=== PATIENT | female | born 1975 | race Caucasian/White ===

== ENCOUNTER → 2019-08-17 11:56 | Outpatient (CLI) | payer BC, SELFPAY ==
--- NOTE | ~2019-08-17 | MM_ITS ---
EXAMINATION: MM screening [place] BI w [facility]ello HISTORY: Screening mammogram TECHNIQUE: Craniocaudal and mediolateral oblique 3-D tomosynthesis images were obtained and synthetic 2-D images were generated. CAD analysis was submitted and interpreted. COMPARISON: 01/25/2016 bilateral diagnostic digital mammogram and Limited bilateral breast ultrasound BREAST PARENCHYMAL COMPOSITION: There are scattered areas of fibroglandular density. FINDINGS: There is no evidence of suspicious mass, calcification, or architectural distortion to sugg est malignancy in either breast. There has been no suspicious interval change. IMPRESSION: 1. No mammographic evidence of malignancy. 2. Recommend routine screening mammography in one year. BI-RADS Category 1: Negative Reviewed, dictated and finalized at location A. BOX OPERATOR
== END ==
PROVIDERS: Visit Provider Obstetrics & Gynecology
DX: Z12.31 Encounter for screening mammogram for malignant neoplasm of breast (principal)
CPT/HCPCS: 77063; 77067

== ENCOUNTER → 2020-09-05 12:15 | Outpatient (CLI) | payer BC, SELFPAY ==
--- NOTE | ~2020-09-05 | MM_ITS ---
EXAMINATION: MM screening [place] w [place] HISTORY: Screening TECHNIQUE: Craniocaudal and mediolateral oblique 3-D tomosynthesis images were obtained and synthetic 2-D images were generated. CAD analysis was submitted and interpreted. COMPARISON: Comparison to multiple prior studies sequentially, with oldest reviewed study dated 01/24. BREAST PARENCHYMAL COMPOSITION: The breasts are heterogenously dense, which may obscure small masses. FINDINGS: There is no evidence of suspicious mass, calcification, or architectural distortion to sugg est malignancy in either breast. There has been no suspicious interval change. IMPRESSION: 1. No mammographic evidence of malignancy. 2. Recommend routine screening mammography in one year. BI-RADS Category 1: Negative Reviewed, dictated and finalized at location D. S ROOM ASSOCIATE
== END ==
PROVIDERS: Visit Provider Obstetrics & Gynecology
DX: Z12.31 Encounter for screening mammogram for malignant neoplasm of breast (principal)
CPT/HCPCS: 77063; 77067

== ENCOUNTER 2021-02-27 01:06 | Day surgery (SDC) | payer BC, SELFPAY ==
[2021-02-19 12:05] VITALS: BMI 30.7
[2021-02-27 08:35] VITALS: BP 138/98; PULSE 74; RESP 18; TEMP 36.6; O2SAT 100
[2021-02-27] MEDS: LACTATED RINGERS 1,000 ML 150 ML IV CONT (08:43)
--- NOTE | 2021-02-27 08:50 | WPDANESEPPF ---
Anes - Initial Pre Proc Eval Procedure: Operation Date: 02/27/21 09:00 Proposed Procedures p Esophagogastroduodenoscopy - Alvaro Liz MD Date/Time: 02/27/21 08:50 Surgeon: Alvaro Liz MD Pre Op Diagnosis: GERD Patient Data Age: 45 Gender: F Height: 1.68 m Weight: 86.6 kg Last Vital Signs Temp 36.6 C 02/27/21 08:35 Pulse 74 02/27/21 08:35 Resp 18 02/27/21 08:35 BP 138/98 H 02/27/21 08:35 Pulse Ox 100 02/27/21 08:35 Allergies Allergy/AdvReac Type Severity Reaction Status Date / Time No Known Allergies Allergy Verified 02/27/21 08:33 Home Medications Medication Instructions Recorded Confirmed Type cetirizine 10 mg tablet 10 mg PO DAILY 12/13/19 02/19/21 History azelastine 137 mcg (0.1 %) nasal 2 spray INTRANASAL Q12H #30 ml 12/17/20 02/19/21 Rx spray aerosol fluticasone propionate 50 1 spray INTRANASAL DAILY 12/17/20 02/19/21 History mcg/actuation nasal spray,suspension pantoprazole 40 mg tablet,delayed 40 mg PO QAM #90 tablet 02/06/21 02/19/21 Rx release ibuprofen 400 mg PO Q4-6H PRN 02/19/21 02/19/21 History Patient hx anesthesia problems: none Family hx anesthesia problems: none [facility] Past Medical History Medical History (Updated 02/27/21 @ 08:50 by Aravind Delvin MD) Anxiety Obesity Surgical History Surgical History H/O laparoscopy H/O tubal ligation Family History Family History Mother Patient's mother is in good health Father Family history of elevated blood lipids Family history of diabetes mellitus in first degree relative Hypertension Grandparent Cerebrovascular accident, Onset Age: 40 Malignant neoplasm of prostate, Onset Age: 70 Family history of malignant neoplasm of ovary Other Family history of malignant neoplasm of breast Social History Social History Smoking packs per day: 0.3 Smoking cigarettes per day: 6.0 Smoking status: Former smoker Tobacco type: cigarettes Second hand tobacco smoke exposure: No Smoking end date: 07/06/06 Alcohol intake: current Alcohol use details: 2 PER MONTH Substance use type: does not use Living arrangements: with family Spiritual care concerns: No Anes - Eval Final PreProcedure Day of Procedure 02/27/21 08:50 Patient weight: obese Heart: regular rate and rhythm Lungs: clear to auscultation Airway: Mallampati scale class II Neurological: alert and oriented Last oral intake: >/= 8 hours ASA classification: II Emergent: no Anesthetic plan: proceed Anesthesia type and monitoring: general GIVS and standard monitoring Informed Consent: The patient's anesthetic plan and its attendant risks and benefits were discussed with the patient/family/POA. Questions were solicited and answers provided to the satisfaction of the patient/family/POA.
--- NOTE | 2021-02-27 09:02 | PM.HPGS ---
History of Present Illness History of Present Illness Consent: Risks, benefits, and alternatives have been discussed and questions answered. Patient agrees to proceed with procedure. Chief complaint: GERD Narrative: Kamini Saravia is a 45 year old female with gerd most of her life, had EGD years ago, tried omeprazole in the past but did not help, started using protonix 2 weeks ago. Also sensation of clearing throat constantly. Review of Systems Constitutional: Constitutional: Denies headache(s) and Denies weakness Eyes: Eyes: Denies blurry vision ENT: Reports Normal hearing present, Denies headache(s) and Denies neck pain Cardiovascular: Cardiovascular: Denies chest pain and Denies dyspnea Respiratory: Respiratory: Denies dyspnea Gastrointestinal: Gastrointestinal: Reports no additional gastrointestinal complaints Genitourinary: Genitourinary: Denies dysuria Musculoskeletal: Musculoskeletal: Denies neck pain Integumentary/Breasts: Skin/Breast: Denies dry skin Neurologic: Reports Normal hearing present, Denies headache(s) and Denies weakness Psychiatric: Psychiatric: Denies anxiety Endocrine: Endocrine: Denies change in body appearance Hematologic/Lymphatic: Hematologic/Lymphatic: Denies easy bleeding Allergic/Immunologic: Allergic/Immunologic: Denies urticaria PMFSH Past Medical History Medical History (Updated 02/27/21 @ 08:50 by Aravind Devlin MD) Anxiety Obesity Surgical History Surgical History H/O laparoscopy H/O tubal ligation Family History Family History Mother Patient's mother is in good health Father Family history of elevated blood lipids Family history of diabetes mellitus in first degree relative Hypertension Grandparent Cerebrovascular accident, Onset Age: 40 Malignant neoplasm of prostate, Onset Age: 70 Family history of malignant neoplasm of ovary Other Family history of malignant neoplasm of breast Social History Social History Smoking packs per day: 0.3 Smoking cigarettes per day: 6.0 Smoking status: Former smoker Tobacco type: cigarettes Second hand tobacco smoke exposure: No Smoking end date: 07/06/06 Alcohol intake: current Alcohol use details: 2 PER MONTH Substance use type: does not use Living arrangements: with family Spiritual care concerns: No Meds Home Medications and Allergies Home Medications Medication Instructions Recorded Confirmed Type cetirizine 10 mg tablet 10 mg PO DAILY 12/13/19 02/19/21 History azelastine 137 mcg (0.1 %) nasal 2 spray INTRANASAL Q12H #30 ml 12/17/20 02/19/21 Rx spray aerosol fluticasone propionate 50 1 spray INTRANASAL DAILY 12/17/20 02/19/21 History mcg/actuation nasal spray,suspension pantoprazole 40 mg tablet,delayed 40 mg PO QAM #90 tablet 02/06/21 02/19/21 Rx release ibuprofen 400 mg PO Q4-6H PRN 02/19/21 02/19/21 History Allergies Allergy/AdvReac Type Severity Reaction Status Date / Time No Known Allergies Allergy Verified 02/27/21 08:33 Vital Signs Vital Signs - 24 hr 02/27/21 08:35 Temperature 97.8 F Pulse Rate 74 Respiratory Rate 18 Blood Pressure 138/98 H Pulse Oximetry 100 Exam Const: General: comfortable and no acute distress HENMT: General nose exam: Normal nares present Eyes: General: appearance normal, both eyes and all related structures Neck: Neck: no JVD Resp: Auscultation: clear to auscultation bilaterally Cardio: Rate: regular rate Rhythm: regular rhythm GI: Inspection: non-distended GI Palp: Yes Soft to palpation Skin: General skin exam: normal color Neuro: General: gait normal Speech: normal speech Extrem: General: normal to inspection Psych: Mental Status: mental status grossly normal Assessment and Plan Assessment and plan (1) Es
[2021-02-27] MEDS: BENZOCAINE (*SP) 60 ML SPRAY CAN (HURRICAINE) 1 SPRAY MUCOUS MEM (09:07)
[2021-02-27 09:18] VITALS: BP 119/92; PULSE 85; RESP 19; O2SAT 98
[2021-02-27 09:28] VITALS: BP 121/95; PULSE 75; RESP 19; O2SAT 98
[2021-02-27 09:38] VITALS: BP 125/87; PULSE 65; RESP 16; O2SAT 98
== END 2021-02-27 10:02 | disposition home or self-care (01) ==
PROVIDERS: PCP Internal Medicine; Visit Provider Internal Medicine Gastroenterology
PROC: 0DJ08ZZ Inspection of Upper Intestinal Tract, Via Natural or Artificial Opening Endoscopic (ICD-10-PCS; CPT 43235; principal; 2021-02-27 09:00)
DX: K21.9 Gastro-esophageal reflux disease without esophagitis (principal); F41.9 Anxiety disorder, unspecified; Z87.891 Personal history of nicotine dependence; E66.9 Obesity, unspecified; Z68.30 Body mass index [BMI] 30.0-30.9, adult
CPT/HCPCS: 43239; 88305; J2001; J2704; J7120

== ENCOUNTER 2021-04-18 14:27 | Outpatient (CLI) | payer BC, SELFPAY ==
--- NOTE | ~2021-04-18 | US_ITS ---
EXAMINATION: US pelvic complete w TV DATE: 04/18/2021 15:11 INDICATION: Pelvic and perineal pain. TECHNIQUE: Multiple transabdominal and transvaginal sonographic images of the pelvis were obtained. COMPARISON: Ultrasound pelvis 01/11/2013 FINDINGS: TRANSABDOMINAL ULTRASOUND: The uterus measures 9.5 x 6.6 x 5.1 cm. There is no free fluid in the pelvis. TRANSVAGINAL ULTRASOUND: The endometrial complex measures 5 mm in thickness. There are nabothian cysts in the cervix. The righ t ovary measures 3.6 x 2.3 x 2.0 cm. There is normal vascular flow in right ovary. The left ovary is not visualized. IMPRESSION: 1. Normal uterus and right ovary. Left ovary not visualized. Reviewed, dictated and finalized at location A.
== END 2021-04-18 14:28 | disposition home or self-care (01) ==
LOC: ANHIMG 14:35
PROVIDERS: PCP Internal Medicine; Visit Provider Obstetrics & Gynecology
DX: N92.0 Excessive and frequent menstruation with regular cycle (principal); R10.2 Pelvic and perineal pain
CPT/HCPCS: 76830; 76856

== ENCOUNTER 2021-06-24 13:06 | Outpatient (CLI) | payer BC, SELFPAY ==
--- NOTE | 2021-06-24 13:18 | ECG_ITS ---
Measurements Intervals [place] Rate: 81 P: 61 GA: 161 QRS: 5 QRSD: 100 T: 5 QT: 348 QTc: 406 Interpretive Statements SINUS RHYTHM POSSIBLE LEFT ATRIAL ENLARGEMENT POOR R WAVE PROGRESSION, ANTERIOR LEADS BORDERLINE ST-T WAVE ABNORMALITY- INFERIOR LEADS BORDERLINE ECG Electronically Signed On 06-24-2021 13:31:37 NATURAL FOODS CLERK by Jean Claude Mccormack D.O.
== END 2021-06-24 13:07 | disposition home or self-care (01) ==
LOC: ANHSURGERY 13:10
PROVIDERS: PCP Internal Medicine; Visit Provider Obstetrics & Gynecology
DX: Z01.818 Encounter for other preprocedural examination (principal); N92.0 Excessive and frequent menstruation with regular cycle
CPT/HCPCS: 36415; 86850; 86900; 86901; 93005

== ENCOUNTER 2021-06-26 00:14 | Day surgery (SDC) | payer BC, SELFPAY ==
[2021-06-24 10:00] VITALS: BMI 32.3
--- NOTE | 2021-06-24 10:16 | PC.NURSE ---
Report to the Outpatient Waiting Room, entrance under the green pavilion located off [facility], at time 6:00 on date 06/26/21. OR Time: 7:30. - You and your visitor will be asked a series of questions to screen for COVID 19 for your protection. - A mask is required within the hospital. - Only one visitor is allowed at this time. Patient visitors will be guided where to wait when not with patient. Preoperative COVID Testing Requirements: No COVID Test needed if: (proof is required; if not received patient will have Rapid Test prior to entry) - Patient has received COVID Vaccine at least 14 days prior to procedure date or - Patient has positive COVID test result within last 90 days of surgery date. COVID Test needed if above criteria is not met If not COVID vaccinated a COVID test must be conducted within 72 hours of surgery and patient is asked to isolate self from time of testing until procedure. You will go to the [facility] for your COVID testing. The [facility] is located at the corner of [address] [facility]. You will only be called if COVID results are positive and your surgeon may reschedule your elective surgery date. Patients may have clear liquids (water, carbonated beverages, clear teas, apple juice) until 3 hours prior to surgery with a maximum of 20 ounces. - No food from midnight until time of surgery - Infants may have breast milk until 4 hours before surgery, infant formula 6 hours prior to surgery. - Children will be allowed to drink immediately following surgery. If applicable, please bring a bottle or sippy cup to assist with drinking. Juice, water, soda, and popsicles are readily available. For infants on formula, please bring formula the day of surgery. Pacifiers are allowed. Take the following medications with a SIP of water the morning of surgery: NONE Medications to discontinue per physician: VITAMINS/SUPPLEMENTS Date to take last dose: DO NOT TAKE UNTIL AFTER SURGERY NO IBUPROFEN FOR [address] HA Please no make-up, nail peruvian, hairspray, perfume, deodorant, or body powder the day of surgery. No jewelry (including any body piercings) or valuables the day of surgery, leave them at home. Please take a shower or bath the night before, or the morning of, surgery with an antibacterial soap. Wear comfortable, loose fitting clothing. Children are encouraged to wear pajamas. - Jewelry must be removed prior to entering the operating room. Rings and piercings that are not removed may be cut off. - The hospital will not accept responsibility for valuables. - Please leave all valuables, including medications, at home the day of surgery. If you are going home after surgery, a licensed transit mixer driver must drive you home. - NO public transportation without another adult. - We recommend that an adult stay with you for 24 hours following discharge. - We also recommend that you do not drive, make important decision, drink alcoholic beverages, or take any drugs that were not prescribed by your health care provider for at least 24 hours after your discharge time. For Pediatric surgeries, we recommend two adults accompany the child home (only one inside the building at this time). Follow any additional instructions given to you from your surgeon. Telephone instructions given to IRAIDA JUAN and asked if any additional questions and then verbalized understanding. Patient advised to call surgeon office or pre surgery nurse liaison [phone] if any additional questions.
--- NOTE | 2021-06-25 15:58 | PM.IMHP ---
H&P: HPI History of Present Illness Date/Time: 06/25/21 15:58 tubal ligation for contraception. She has very heavy cycles where she has soiling. She has had a history of menorrhagia and has tried control pills in the past which does not work well for her. She has been recently diagnosed with anemia. She does get fatigued with her periods She states that she feels significant pain on her left side with her periods and when she is ovulating this happened most months. She has not noticed any change in the flow with exercise. The heaviness is affecting her quality of life. She does have a history of endometriosis. She has been informed of options of progesterone only control pill or low-dose control pill Depo-Provera Nexplanon also discussed options of progesterone only IUD and risks benefits of all of these discussed. Also discussed with her options of endometrial ablation risks benefits of this discussed. She states she is at the point where she does not want to try something and have the chance of it feeling. She desires definitive treatment. I informed her of the treatment option of a hysterectomy. I discussed with her what the hysterectomy procedure. Discussed the recovery involved with it. Discussed removing of fallopian tubes which helped to decrease risk of ovarian cancer. Discussed if her ovary should remain which I usually recommend to keep ovaries in women less than 47 unless they look abnormal. Since she is having some pain on her left side then she can consider removing that ovary. Discussed that a hysterectomy with keeping her ovaries would not stop her premenstrual symptoms or ovulation symptoms unless that ovary is removed. She does have hot flashes occasionally. Has not done well with hormone in past and does not want to do any hormonal therapy. She had recent endometrial biopsy which was normal. She desires definitive treatment for the menorrhagia and pelvic pain. She wants her ovaries removed. Discuss symptoms risk of surgical menopause to include increase risk of bone loss, discussed menopausal symptoms. Discussed specifically robotic laparoscopy and risk benefits. Discussed the risk benefits of robotic minimally invasive procedure versus traditional laparoscopic hysterectomy or vaginal hysterectomy. Discussed that there is a 5-8 % chance of needing future invasive or surgical evaluation of ovaries if they remain.Discussed the benefit of keeping her ovaries, on her bone health, cognition and discussed symptoms of surgical menopause. Chief Complaint: heavy periods, pelvic pain Review of Systems Review of Systems: All systems reviewed & are unremarkable except as noted in HPI and below Cardiovascular: Cardiovascular: Reports no additional cardiovascular complaints, Denies chest pain and Denies dyspnea Respiratory: Respiratory: Reports no additional respiratory complaints and Denies dyspnea Gastrointestinal: Gastrointestinal: Reports abdominal pain, Denies change in bowel habits, Denies diarrhea, Denies nausea and Denies vomiting Genitourinary: Genitourinary: Reports pelvic pain Musculoskeletal: Musculoskeletal: Reports back pain Integumentary/Breasts: Skin/Breast: Reports system reviewed and no additional complaints, except as docu Neurologic: Reports system reviewed and no additional complaints, except as documented [facility] Past Medical History Medical History Anxiety Obesity Surgical History Surgical History H/O laparoscopy H/O tubal ligation Family History Family History Mother Patient's mother is in good health Father Family history of elevated blood lipids Family history of diabetes mellitus in first degree relative Hypertension Grandparent Cerebrovascular accident, Onset Age: 40 Malignant neoplasm of
[2021-06-26] VITALS (16 sets, daily range): BP systolic 116–150; BP diastolic 80–92; PULSE 84–102; RESP 16–24; TEMP 36.1–36.2; O2SAT 91–100
--- NOTE | 2021-06-26 06:49 | WPDANESEPPF ---
Anes - Initial Pre Proc Eval Procedure: Operation Date: 06/26/21 07:30 Proposed Procedures p Robotic Hysterectomy with Bilateral Salpingo-Oophorectomy - Elver Jones MD Date/Time: 06/26/21 06:49 Surgeon: Elver Jones MD Pre Op Diagnosis: menorrhaghia Patient Data Age: 45 Gender: F Height: 1.68 m Weight: 90.72 kg Allergies Allergy/AdvReac Type Severity Reaction Status Date / Time No Known Allergies Allergy Verified 06/24/21 09:57 Home Medications Medication Instructions Recorded Confirmed Type cetirizine 10 mg tablet 10 mg PO DAILY 12/13/19 06/24/21 History pantoprazole 40 mg tablet,delayed 40 mg PO QAM #90 tablet 02/06/21 06/24/21 Rx release ibuprofen 400 mg PO Q4-6H PRN 02/19/21 06/24/21 History multivitamin 1 tablet PO DAILY 03/20/21 06/24/21 History ferrous sulfate 325 mg (65 mg 325 mg PO DAILY 06/21/21 06/24/21 History iron) tablet norethindrone 1 mg-ethinyl 1 tablet PO HS 06/21/21 06/24/21 History estradiol 20 mcg (21)-iron 75 mg (7) tablet Patient hx anesthesia problems: none Family hx anesthesia problems: none Results Review: All pre-operative results and documents have been reviewed as part of the pre-operative evaluation. [facility] Past Medical History Medical History Anxiety Obesity Surgical History Surgical History (Updated 06/26/21 @ 06:50 by Aravind Devlin MD) H/O laparoscopy H/O tubal ligation Hx of tonsillectomy Family History Family History Mother Patient's mother is in good health Father Family history of elevated blood lipids Family history of diabetes mellitus in first degree relative Hypertension Grandparent Cerebrovascular accident, Onset Age: 40 Malignant neoplasm of prostate, Onset Age: 70 Family history of malignant neoplasm of ovary Other Family history of malignant neoplasm of breast Social History Social History (Updated 06/26/21 @ 06:50 by Aravind Devlin MD) Smoking packs per day: 0.3 Smoking cigarettes per day: 6.0 Years smoked: 9 Smoking pack-years: 2.70 Smoking status: Former smoker Tobacco type: cigarettes Second hand tobacco smoke exposure: No Smoking end date: 07/06/04 Alcohol intake: current Alcohol use details: 1/MONTH Substance use: current Substance use type: marijuana Other substance usage details: EDIBLES - EVERY FEW MONTHS Living arrangements: with family Spiritual care concerns: No Anes - Eval Final PreProcedure Day of Procedure 06/26/21 06:49 Patient weight: obese Heart: regular rate and rhythm Lungs: clear to auscultation Airway: Mallampati scale class II Neurological: alert and oriented Last oral intake: >/= 8 hours ASA classification: II Emergent: no Anesthetic plan: proceed Anesthesia type and monitoring: general ETT and standard monitoring Results Review: All pre-operative results and documents have been reviewed as part of the pre-operative evaluation. Informed Consent: The patient's anesthetic plan and its attendant risks and benefits were discussed with the patient/family/POA. Questions were solicited and answers provided to the satisfaction of the patient/family/POA.
[2021-06-26] MEDS: ACETAMINOPHEN 500 MG TABLET 1000 MG PO ×2 (06:50→07:00)
[2021-06-26] MEDS: KETOROLAC 15 MG/ML VIAL (*BKC) IV PUSH ×3 (06:54→13:27)
[2021-06-26] MEDS: LACTATED RINGERS 1,000 ML 30 ML IV CONT ×3 (07:00→11:32)
--- NOTE | 2021-06-26 07:18 | WPDHPUPDATE1 ---
History and Physical Update Update Date/Time: 06/26/21 07:18 History and Physical has been reviewed, including an updated exam of the patient. There are NO changes in the patient's condition. Risks, benefits, and alternatives have been discussed and questions answered. Patient agrees to proceed with procedure.
[2021-06-26] MEDS: ceFAZolin 2 GM/D5W 50 ML 2 GM/50 ML BAG IVPB (07:26)
[2021-06-26] MEDS: BUPIVACAINE HCL 0.5% PF 30 ML VIAL INFILTRATE (07:56)
--- NOTE | 2021-06-26 08:38 | SUR.OPER ---
patients positioning maintained and unchanged.
--- NOTE | 2021-06-26 10:03 | W.PM.PROC2 ---
Procedure Note - Detailed Date of Procedure 06/26/21 Pre-op Diagnosis menorrhaghia pelvic pain endometriosis Post-op Diagnosis same Procedure Performed Robotic assisted laparoscopic hysterectomy with bilateral salpingo-oophorectomy Surgeon Elver Jones MD Anesthesia general Indications Menorrhagia with anemia, not responding to medication and pelvic pain and dysmenorrhea. She desires definitive treatment. Findings Uterus mildly enlarged, left ovary with simple cyst, fallopian tubes dilated bilaterally, right ovary with adhesions to right pelvic wall, endometriosis seen on sigmoid colon Description of Procedure After informed consent was obtained she was taken to the operating room and general endotracheal anesthesia was administered. She was placed in low lithotomy position and prepped and draped in sterile fashion. Fleming catheter placed in bladder. Attention was turned to the vagina speculum was inserted. Single-tooth tenaculum placed on anterior lip of the cervix the uterus sounded to 8 cm. The cervix was dilated to a 7 Cavazos dilator. The size 8 uterine manipulator was inserted and secured. A size 3.5 colp cup was secured in the vagina. Attention was turned to the abdomen with new sterile gloves a horizontal incision was made 2 cm above the umbilicus. A Veress needle was inserted into abdomein, confirmation into the abdomen was obtained with free flow of fluid and normal peritoneal pressures. Pneumoperitoneum of 15 mm per mercury was obtained. A size 8mm port was inserted under laparoscopic visualization into the abdomen. Attention was turned to the left side of the abdomen 8 cm below and lateral to the initial incision and incision was made and a size 8 robotic port was inserted under laparoscopic visualization. Attention was turned to the right side of the abdomen and parallel to this and incision was made. An 8 mm robotic port was inserted under laparoscopic visualization. Superior and 5 mm medial to this a 10mm inventory assistant port was inserted under laparoscopic visualization. Patient was placed in Trendelenburg position to the point to allow the bowel to retract out of the pelvis. The initial 8mm supraumbilical port was enough space to allow it to be secured to robotic arm therefore it was removed and a size 12 which was longer was inserted under laparoscopic visualization. The robotic arms were then secured to the ports. Attention was turned to the surgical console. Attention was turned to the right round ligament which was cauterized and incised the anterior leaf of the broad ligament was further dissected to the level of the vesicouterine peritoneum. The right side of the bladder was dissected from the lower uterine segment and upper cervix. The right infundibulopelvic ligament was cauterized. The ovary was adhesed to the right pelvic wall. The adhesions were lysed. The ovary was released. The posterior leaf of broad ligament was further dissected. The uterine vessels on the right were skeletonized. The ascending uterine vessels on the right were cauterized. The uterine vessels were cauterized. Attention was turned to the left round ligament which was cauterized. The left anterior leaf of the broad ligament was further dissected to the vesicouterine peritoneum. The rest of the bladder was dissected from the lower uterine segment to below the level of the palpable colpotomy cup. The left infundibulopelvic ligament was cauterized. The posterior leaf of the broad ligament was further dissected. The ascending uterine vessels were cauterized the uterine arteries were further skeletonized. The uterine arteries were cauterized. An incision was made anterior colpotomy incision was made and this was carried around until the cervix was removed from the vagina. The uterus cervix and fallopian tubes and ovaries were removed through the vagina. The vaginal cuff was closed in a running fashion with 0 V lock suture. Hemostasis was noted.
[2021-06-26] MEDS: fentaNYL CITRATE INJ (*CRX) 100 MCG/2 ML VIAL 25 MCG IV PUSH ×4 (10:41→11:44)
[2021-06-26] MEDS: ONDANSETRON INJ 4 MG/2 ML VIAL IV PUSH (12:14)
[2021-06-26] MEDS: oxyCODONE HCL (*CRX) 5 MG TAB IR PO (14:04)
--- NOTE | 2021-06-26 16:02 | SUR.PHASEII ---
1450 - dr. umana called with update. order received for discharge
== END 2021-06-26 15:25 | disposition home or self-care (01) ==
PROVIDERS: PCP Internal Medicine; Visit Provider Obstetrics & Gynecology
PROC: (CPT 58571; principal; 2021-06-26 07:30)
DX: N92.0 Excessive and frequent menstruation with regular cycle (principal); R10.2 Pelvic and perineal pain; N73.6 Female pelvic peritoneal adhesions (postinfective); N80.8 Other endometriosis; N80.0 Endometriosis of uterus; D25.1 Intramural leiomyoma of uterus; N70.11 Chronic salpingitis; N83.02 Follicular cyst of left ovary; E66.9 Obesity, unspecified; Z68.32 Body mass index [BMI] 32.0-32.9, adult; Z87.891 Personal history of nicotine dependence; F12.90 Cannabis use, unspecified, uncomplicated
CPT/HCPCS: 58571; S2900; 36415; 86850; 86900; 86901; 88307; 93005; A9270; J0131; J0690; J1100; J1885; J2250; J2405; J2704; J2710; J3010; J7030; J7120

== ENCOUNTER → 2022-01-20 10:15 | Outpatient (CLI) | payer BC, SELFPAY ==
--- NOTE | ~2022-01-20 | MM_ITS ---
EXAMINATION: MM screening [place] BI w bello HISTORY: Screening TECHNIQUE: Craniocaudal and mediolateral oblique 3-D tomosynthesis images were obtained and synthetic 2-D images were generated. CAD analysis was submitted and interpreted. COMPARISON: Comparison to multiple prior studies sequentially, with oldest reviewed study dated 01/24. BREAST PARENCHYMAL COMPOSITION: There are scattered areas of fibroglandular density. FINDINGS: There is no evidence of suspicious mass, calcification, or architectural distortion to sugg est malignancy in either breast. There has been no suspicious interval change. IMPRESSION: 1. No mammographic evidence of malignancy. 2. Recommend routine screening mammography in one year. BI-RADS Category 1: Negative Reviewed, dictated and finalized at location A.
== END ==
PROVIDERS: PCP Internal Medicine; Visit Provider Obstetrics & Gynecology
DX: Z12.31 Encounter for screening mammogram for malignant neoplasm of breast (principal)
CPT/HCPCS: 77063; 77067

== ENCOUNTER → 2022-04-07 08:12 | Outpatient (CLI) | payer BC, SELFPAY ==
--- NOTE | ~2022-04-07 | US_ITS ---
US abdomen complete EXAMINATION: US Abdomen Complete INDICATION: Elevated liver enzymes PROCEDURE: Realtime High Resolution abdomen ultrasound. COMPARISON: No prior studies for comparison FINDINGS: Gallbladder within normal limits. No gallstones, pericholecystic fluid, gallbladder wall t hickening or biliary dilatation. Common bile duct measures 3 mm. Liver echotexture is increased, consistent with fatty infiltration. Pancreas within normal limits. Pancreatic tail is obscured by bowel gas. Spleen is unremarkeable. Renal echotexture is within jeff l limits bilaterally without hydronephrosis, contour deforming mass or renal stone. Right kidney nery ures 12.7 cm. Left kidney measures 12.6 cm. Visualized aspects of the aorta and IVC are within normal limits. Portal vein is patent. No sonograph ic Johnson's sign indicated by the technologist. IMPRESSION: 1: Hepatic steatosis. Reviewed, dictated and finalized at location A. IMPRESSION: 1: Hepatic steatosis.
== END ==
PROVIDERS: PCP Internal Medicine; Visit Provider Internal Medicine
DX: R79.89 Other specified abnormal findings of blood chemistry (principal); K76.0 Fatty (change of) liver, not elsewhere classified
CPT/HCPCS: 76700

== ENCOUNTER 2022-04-10 08:07 | Outpatient (RCR) | payer BC, SELFPAY ==
[2022-04-10 08:26] VITALS: BMI 33.1
[2022-04-10 12:54] VITALS: BMI 33.1
== END 2022-07-01 08:24 | disposition home or self-care (01) ==
LOC: ANHDMC 08:07
PROVIDERS: PCP Internal Medicine; Visit Provider Internal Medicine
DX: E66.9 Obesity, unspecified (principal); Z71.3 Dietary counseling and surveillance
CPT/HCPCS: 97802

== ENCOUNTER 2022-06-11 00:16 | Day surgery (SDC) | payer BC, SELFPAY ==
[2022-06-02 14:15] VITALS: BMI 31.4
[2022-06-11 09:03] VITALS: BP 144/82; PULSE 97; RESP 20; TEMP 36.1; O2SAT 99; BMI 31.7
[2022-06-11] MEDS: LACTATED RINGERS 1,000 ML 150 ML IV CONT (09:17)
--- NOTE | 2022-06-11 09:36 | WPDANESEPPF ---
Anes - Initial Pre Proc Eval Procedure: Operation Date: 06/11/22 10:15 Proposed Procedures p Colonoscopy - Alvaro Liz MD Date/Time: 06/11/22 09:36 Surgeon: Alvaro Liz MD Pre Op Diagnosis: LLQ abdominal pain Patient Data Age: 46 Gender: F Height: 1.68 m Weight: 89.2 kg Last Vital Signs Temp 97 F L 06/11/22 09:03 Pulse 97 06/11/22 09:03 Resp 20 06/11/22 09:03 BP 144/82 H 06/11/22 09:03 Pulse Ox 99 06/11/22 09:03 O2 Del Method Room Air 06/11/22 09:03 Allergies Allergy/AdvReac Type Severity Reaction Status Date / Time No Known Allergies Allergy Verified 06/11/22 09:02 Home Medications Medication Instructions Recorded Confirmed Type cetirizine 10 mg tablet (Zyrtec) 10 mg PO DAILY 12/13/19 06/11/22 History multivitamin (Daily Multi-Vitamin 1 tablet PO DAILY 03/20/21 06/11/22 History tablet) fluticasone propionate 50 1 spray intranasal DAILY 12/25/21 06/11/22 History mcg/actuation nasal spray,suspension (Flonase Allergy Relief) colchicine 0.6 mg tablet 0.6 mg PO DAILY #30 tabs 04/16/22 06/11/22 Rx pantoprazole 40 mg tablet,delayed 40 mg PO BID 06/02/22 06/11/22 History release (Protonix) dicyclomine 20 mg tablet 20 mg PO TID PRN abdominal 06/05/22 06/11/22 Rx discomfort #90 tabs hydroxychloroquine 200 mg tablet 400 mg PO DAILY #180 tabs 06/10/22 06/11/22 Rx (Plaquenil) Patient hx anesthesia problems: none Family hx anesthesia problems: none Results Review: All pre-operative results and documents have been reviewed as part of the pre-operative evaluation. [facility] Past Medical History Medical History (Updated 06/09/22 @ 09:49 by Matthew Conrad MD) Allergic rhinitis Allergic rhinitis JITENDRA positive Anemia Anxiety Arthritis Breast pain Cervical radiculopathy Chronic sinusitis, unspecified Diarrhea in adult patient Dietary counseling and surveillance (05/21/15) Dysmenorrhea Ear pain Elevated antinuclear antibody (JITENDRA) level Elevated LFTs Epigastric pain Esophageal reflux disease Fatigue Fatty liver Gastro-esophageal reflux disease without esophagitis History of endometriosis Hyperglycemia Injury of calf Iron deficiency anemia secondary to blood loss (chronic) Kidney stones Left foot pain Left shoulder pain Left upper quadrant pain Low grade squamous intraepithelial lesion (LGSIL) on Papanicolaou smear of cervix Menopausal symptom Menorrhagia Nasal congestion Obesity Obesity, Class I, BMI 30-34.9 Otalgia of both ears Pain of right foot Pelvic pain Plantar fasciitis, bilateral PMDD (premenstrual dysphoric disorder) Positive JITENDRA (antinuclear antibody) Post-op pain Preop examination Pseudogout of ankle Pure hypercholesterolemia Spondylarthrosis TMJ (temporomandibular joint disorder) Transient cerebral ischemia Unspecified abnormal cytological findings in specimens from cervix uteri UTI (urinary tract infection) Weight gain finding Surgical History Surgical History H/O bilateral salpingo-oophorectomy H/O laparoscopy endometriosis Dr. Jones H/O tubal ligation Hx of tonsillectomy S/P laparoscopic hysterectomy Family History Family History Mother Patient's mother is in good health Father Family history of elevated blood lipids Family history of diabetes mellitus in first degree relative Hypertension Grandparent Cerebrovascular accident, Onset Age: 40 Malignant neoplasm of prostate, Onset Age: 70 Family history of malignant neoplasm of ovary Other Family history of malignant neoplasm of breast Osteoarthritis Social History Social History Smoking packs per day: 0.3 Smoking cigarettes per day: 6.0 Years smoked: 9 Smoking pack-years: 2.70 Smoking status: Former smoker Tobacco type: cigarettes
--- NOTE | 2022-06-11 09:43 | WPDHPUPDATE1 ---
History and Physical Update Update Date/Time: 06/11/22 09:43 History and Physical has been reviewed, including an updated exam of the patient. There are NO changes in the patient's condition. Risks, benefits, and alternatives have been discussed and questions answered. Patient agrees to proceed with procedure.
[2022-06-11 10:04] VITALS: BP 121/85; PULSE 74; RESP 35; O2SAT 99
[2022-06-11 10:14] VITALS: BP 133/92; PULSE 71; RESP 19; O2SAT 99
[2022-06-11 10:24] VITALS: BP 119/85; PULSE 80; RESP 18; O2SAT 100
== END 2022-06-11 10:32 | disposition home or self-care (01) ==
PROVIDERS: PCP Internal Medicine; Visit Provider Internal Medicine Gastroenterology
PROC: 0DJD8ZZ Inspection of Lower Intestinal Tract, Via Natural or Artificial Opening Endoscopic (ICD-10-PCS; CPT 45378; principal; 2022-06-11 10:15)
DX: R10.32 Left lower quadrant pain (principal); K64.8 Other hemorrhoids; K21.9 Gastro-esophageal reflux disease without esophagitis; K76.0 Fatty (change of) liver, not elsewhere classified; R76.0 Raised antibody titer; Z87.891 Personal history of nicotine dependence; E66.9 Obesity, unspecified; Z68.31 Body mass index [BMI] 31.0-31.9, adult
CPT/HCPCS: 45378; J2704; J7120

== ENCOUNTER → 2022-06-18 07:38 | Outpatient (CLI) | payer BC, SELFPAY ==
--- NOTE | ~2022-06-18 | XR_ITS ---
AP and oblique views of the SI joints Clinical history: Joint pain FINDINGS: No fracture identified. SI joints are unremarkable. No sclerosis, erosive change, or ankylo sis. Soft tissues are unremarkable. IMPRESSION: Unremarkable exam. 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
--- NOTE | ~2022-06-18 | XR_ITS ---
Bilateral Hands Technique: PA, oblique, and lateral views, and ball-catcher's view were obtained. Clinical History: Arthritis, joint pain Findings: No acute fracture or dislocation is seen. Osseous alignment is anatomic. Joint spaces are p reserved. Soft tissues are unremarkable. Impression: Unremarkable bilateral hands. Reviewed, dictated and finalized at location [] [employer] Impression: Unremarkable bilateral hands.
== END ==
PROVIDERS: PCP Internal Medicine; Visit Provider Internal Medicine
DX: M25.50 Pain in unspecified joint (principal)
CPT/HCPCS: 72202; 73130

== ENCOUNTER → 2022-09-10 08:49 | Outpatient (CLI) | payer BC, SELFPAY ==
--- NOTE | ~2022-09-10 | MR_ITS ---
EXAMINATION: MR sacroiliac jts wo/w con DATE: 09/10/2022 09:41 INDICATION: Worsening chronic bilateral hip pain TECHNIQUE: Magnetic resonance imaging (MRI) of the sacroiliac joints was performed without and with 1 8 mL Multihance intravenous contrast. Sequences included sagittal PD-weighted FS FSE, coronal obliqu e T2-weighted FS FSE, coronal oblique T1-weighted FSE, coronal oblique T2-weighted FSE, oblique axial T2-weighted FS FSE , oblique axial T1-weighted FSE and postcontrast oblique axial and oblique catalan l T2-weighted FS FSE. COMPARISON: None FINDINGS: Bone alignment is normal. Normal bone marrow signal throughout with no reactive edema, fracture or pa thologic marrow replacing process. Minimal osteoarthritis at the bilateral sacroiliac joints. No eros ions or enhancing synovitis to suggest an inflammatory sacroiliitis. Mild facet osteoarthritis bilate rally in the lower lumbar spine. Mild osteoarthritis at the bilateral hips with mild posterior predom inant nonuniform joint space narrowing. No hip joint effusions. Postoperative change of prior hystere ctomy. Bladder and visualized portion of the bowels are unremarkable. No pathologically enlarged lymp hadenopathy in the visualized pelvis. IMPRESSION: 1. Minimal bilateral sacroiliac osteoarthritis. No erosions or enhancing synovitis to suggest an infl ammatory sacroiliitis. Reviewed, dictated and finalized at location A. ND OPERATOR IMPRESSION: 1. Minimal bilateral sacroiliac osteoarthritis. No erosions or enhancing synovi tis to suggest an inflammatory sacroiliitis.
== END ==
PROVIDERS: PCP Internal Medicine; Visit Provider Internal Medicine
DX: R10.9 Unspecified abdominal pain (principal); M53.3 Sacrococcygeal disorders, not elsewhere classified
CPT/HCPCS: 72197; A9577

== ENCOUNTER → 2022-09-12 15:04 | Outpatient (CLI) | payer BC, SELFPAY ==
--- NOTE | ~2022-09-12 | CT_ITS ---
EXAMINATION: CT abdomen pelvis w con DATE: 09/12/2022 15:31 INDICATION: Left-sided abdominal pain TECHNIQUE: Computed tomography (CT) of the abdomen and pelvis was performed with 100 mL Omnipaque-350 intravenous contrast. Automated exposure control and iterative reconstruction technique were employe d. The dose-length product was 1013.18 mGy-cm. COMPARISON: None FINDINGS: Bilateral lower lungs are clear. Heart size is normal. No pericardial or pleural effusion. Diffuse he patic steatosis with focal sparing along the gallbladder fossa. Gallbladder, spleen, pancreas, bilate ral adrenal glands and right kidney are normal. 11 mm nonobstructing stone in a middle calyx of the l eft kidney. Bladder is normal. The uterus is not identified and has likely been surgically resected. Bowels including the appendix are normal. No free intraperitoneal gas or fluid. No pathologically enl arged abdominal or pelvic lymphadenopathy. Mild lumbar spondylosis. IMPRESSION: 1. No acute intra-abdominal/pelvic process. 2. 11 mm nonobstructing left renal stone. Reviewed, dictated and finalized at location A. NESS ARCHITECT
== END ==
PROVIDERS: PCP Internal Medicine; Visit Provider Nurse Practitioner
DX: R10.9 Unspecified abdominal pain (principal); N20.0 Calculus of kidney
CPT/HCPCS: 74177; Q9967

== ENCOUNTER 2022-09-29 08:23 | Outpatient (CLI) | payer BC, SELFPAY ==
--- NOTE | 2022-10-12 13:31 | WPDHOMESLEEP ---
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 Her tells her that she snores. There is a family history of sleep issues, her father has sleep apnea. Her mother is a light sleeper. She does not awaken from sleep feeling short of breath. She occasionally awakens at night with heartburn, belching or coughing. She constantly snores loudly enough that others complain about it. She always has difficulty sleeping with a cold. She occasionally wakes up gasping for breath at night. She rarely has breathing problems at night observed by others. She occasionally sweats excessively at night. She does not notice her heart pounding or beating irregularly at night. She frequently falls asleep during the day but never involuntarily. She occasionally falls asleep while driving. She does not have loss of muscle tone with strong emotion. She occasionally has daytime difficulties due to excessive sleepiness. She occasionally feels paralyzed on waking or falling asleep. She does not have vivid dreamlike scenes on waking or falling asleep. She does not feel afraid to go to sleep. She occasionally has nightmares. She occasionally remembers her dreams. She occasionally has racing thoughts. She rarely feels sad or depressed. She occasionally has anxiety, muscular tension, kicking at night and occasionally notices parts of her body jerking. She frequently has crawling and aching feelings in her legs and leg pain at night. She rarely has morning jaw pain. She rarely grinds her teeth during sleep. She frequently is bothered by pain during the day. She frequently is awakened by pain at night. She frequently wakes up feeling stiff in the morning. She occasionally wakes up with sore achy muscles. She frequently wakes up with pain in the neck and spine. She has fatigue, memory problems concentration difficulties. She takes pantoprazole regularly. Her fatigue affects her libido. Normal bedtime is 10:00 p.m., often taking 1-3 hours to fall asleep. She may wake as often as 5 times during the night for unclear reasons. These awakenings may last between 10 minutes or up to 2 hours. She wakes the morning at 6:30 a.m.. Weekend schedule is similar, bedtime is between 10:00 p.m. and 11:00 p.m., wake is 7:00 a.m.. She estimates getting between 7 and 8 hours of sleep at night. She sometimes takes naps in the afternoon or evening. Sometimes a 10 or 15 minute nap may be refreshing. She is usually drowsy for an hour after waking feet. She feels better in the morning compared to other times of day. Habits: Quit tobacco 16 years ago. Caffeine 1 serving a day. Alcohol once a week. No recreational substances. [facility] Past Medical History Medical History Abdominal pain Allergic rhinitis Allergic rhinitis JITENDRA positive Anemia Anxiety Arthritis Breast pain Cervical radiculopathy Chronic sinusitis, unspecified Diarrhea in adult patient Dietary counseling and surveillance (05/21/15) Dysmenorrhea Ear pain Elevated antinuclear antibody (JITENDRA) level Elevated LFTs Epigastric pain Esophageal reflux disease Fatigue Fatty liver Gastro-esophageal reflux disease without esophagitis History of endometriosis Hyperglycemia Injury of calf Iron deficiency anemia secondary to blood loss (chronic) Kidney stones Left foot pain Left shoulder pain Left upper quadrant pain Low grade squamous intraepithelial lesion (LGSIL) on Papanicolaou smear of cervix Menopausal symptom Men
[2022-10-12 16:42] VITALS: BMI 33.2
== END 2022-10-01 09:48 | disposition home or self-care (01) ==
LOC: ANHCSM 08:24
PROVIDERS: PCP Internal Medicine; Visit Provider Internal Medicine
DX: G47.10 Hypersomnia, unspecified (principal); G25.81 Restless legs syndrome; K21.9 Gastro-esophageal reflux disease without esophagitis; E78.00 Pure hypercholesterolemia, unspecified; Z87.891 Personal history of nicotine dependence
CPT/HCPCS: 95806

== ENCOUNTER 2023-10-15 21:52 | Emergency (ER) | payer BC, SELFPAY ==
--- NOTE | ~2023-10-15 | XR_ITS ---
EXAMINATION: XR chest 2V 10/15/2023 22:22 INDICATION: Left-sided chest pain PROCEDURE: 2 view chest COMPARISON: No prior studies for comparison. FINDINGS: The lungs are clear. The cardiomediastinal silhouette is within normal limits. There are no pleural effusions. There is no pneumothorax suspected. IMPRESSION: 1: NO ACUTE CARDIOPULMONARY DISEASE. Reviewed, dictated and finalized at location A.
[2023-10-15 21:53] VITALS: BP 181/110; PULSE 84; RESP 17; TEMP 36.2; O2SAT 100
--- NOTE | 2023-10-15 22:01 | ECG_ITS ---
SEE SCANNED COPY FOR CONFIRMED REPORT MTDD
[2023-10-15 22:22] LABS: Basophils Absolute Auto 0.1 K/mm3 (0.0-0.1); Eosinophils Absolute Auto 0.6 K/mm3 (0-0.3); Eosinophils Percent Auto 8.4 % (0-4.4); Hematocrit 43.3 % (37.0-47.0); Immature Granulocyte Absolute 0.02 K/mm3 (0.00-0.031); Immature Granulocyte Percent A 0.3 % (0-0.5); Lymphocytes Absolute Auto 2.53 K/mm3 (0.9-3.2); Lymphocytes Percent Auto 36.1 % (18.3-44.2); Mean Corpuscular HGB Conc 32.3 g/dl (32-36); Mean Corpuscular Hemoglobin 26.9 pg (26-34); Mean Corpuscular Volume 83.3 fl (80-100); Mean Platelet Volume 9.4 fl (7.4-10.4); Monocytes Absolute Auto 0.6 K/mm3 (0.1-0.6); Monocytes Percent Auto 8.1 % (2.6-8.5); Neutrophils Absolute Auto 3.2 K/mm3 (1.3-6.7); Neutrophils Percent Auto 46.1 % (45.5-73.1); Platelet Count Result 267 k/mm3 (150-375); Red Cell Distribution Width 15.7 % (11.5-14.5)
[2023-10-15 22:33] LABS: Alanine Aminotransferase 79 U/L (6-35); Alkaline Phosphatase 108 U/L (38-126); Anion Gap 8 mmol/L (4-12); Aspartate Amino Transferase 46 U/L (14-36); Bilirubin,Total 0.5 mg/dL (0.2-1.3); Blood Urea Nitrogen 15 mg/dL (7-17); Calcium 10.4 mg/dL (8.4-10.2); Carbon Dioxide 28 mmol/L (22-30); Chloride 104 mmol/L (98-107); Estimated CRCL calculation 91 ml/min; Estimated Glomerular Filt Rate > 60; Glucose 109 mg/dL (65-110); Lipase 164 U/L (23-300); Sodium 140 mmol/L (137-145)
[2023-10-15 22:35] LABS: INR 0.9; Prothrombin Time 12.8 Seconds (11.1-14.7)
[2023-10-15 22:43] LABS: Troponin I < 0.012 ng/mL (0.000-0.034)
[2023-10-15 23:03] VITALS: BP 136/90; PULSE 70; PULSE 75; RESP 17; O2SAT 99
[2023-10-15 23:06] VITALS: O2SAT 99
[2023-10-15] MEDS: ASPIRIN 81 MG CHEWABLE TABLET 324 MG PO (23:08)
--- NOTE | 2023-10-16 00:18 | ED.CHESTPAIN ---
HPI - Chest Pain General Chief Complaint: Chest Pain Stated Complaint: chest pain Time Seen by Provider: 10/15/23 23:28 Source: patient Mode of arrival: ambulatory Limitations: no limitations History of Present Illness HPI narrative: This is a 47-year-old female who presents to the ED with chief complaint of left-sided chest pain beginning around 17 30 this evening. Patient reports the pain radiates to the neck and left arm and is intermittent in nature. Patient states that at the time of this interview she is actually pain-free. She reports that has resolved without intervention here. She is feeling much better overall. She states that when the pain comes on it is often associated with bilateral neck tightness. She also reports that she will sometimes feel that it is hard to take a deep breath. She has been undergoing workup and treatment for anxiety as well as rheumatological workup for lupus. Denies fevers, chills, shortness of breath, abdominal pain, nausea, vomiting, syncope. Denies recent immobilization, hospitalization, history of blood clot. Denies any estrogen use. Related Data Home Medications Medication Instructions Recorded Confirmed fluticasone propionate 50 1 spray intranasal DAILY 12/25/21 08/07/23 mcg/actuation nasal spray,suspension (Flonase Allergy Relief) Saccharomyces boulardii 250 mg 5,000 mmu cells PO DAILY 08/26/22 08/07/23 capsule (Daily Probiotic (S. boulardii)) cetirizine 10 mg capsule (Zyrtec) 10 mg PO DAILY PRN 08/26/22 08/07/23 Allergies Allergy/AdvReac Type Severity Reaction Status Date / Time No Known Allergies Allergy Verified 10/15/23 23:07 Review of Systems Review of Systems: All systems as dictated in [facility] Past Medical History Medical History (Updated 10/16/23 @ 00:36 by Vipul Harper PA-C) Abdominal pain Allergic rhinitis Allergic rhinitis JITENDRA positive Anemia Anxiety Arthritis Breast pain Cervical radiculopathy Chronic sinusitis, unspecified Diarrhea in adult patient Dietary counseling and surveillance (05/21/15) Dysmenorrhea Ear pain Elevated antinuclear antibody (JITENDRA) level Elevated LFTs Encounter for medication management Epigastric pain Esophageal reflux disease Fatigue Fatty liver Gastro-esophageal reflux disease without esophagitis History of endometriosis Hyperglycemia Injury of calf Iron deficiency anemia secondary to blood loss (chronic) Kidney stones Left foot pain Left shoulder pain Left upper quadrant pain Low grade squamous intraepithelial lesion (LGSIL) on Papanicolaou smear of cervix Menopausal symptom Menorrhagia Nasal congestion Obesity Obesity, Class I, BMI 30-34.9 Otalgia of both ears Pain of right foot Pelvic pain Plantar fasciitis, bilateral PMDD (premenstrual dysphoric disorder) Positive JITENDRA (antinuclear antibody) Post-op pain Preop examination Pseudogout of ankle Pure hypercholesterolemia Spondylarthrosis TMJ (temporomandibular joint disorder) Transient cerebral ischemia Unspecified abnormal cytological findings in specimens from cervix uteri UTI (urinary tract infection) Weight gain finding Surgical History Surgical History H/O bilateral salpingo-oophorectomy H/O laparoscopy endometriosis Dr. Jones H/O tubal ligation Hx of tonsillectomy S/P laparoscopic hysterectomy Family History Family History Mother Patient's mother is in good health Father Family history of elevated blood lipids Family history of diabetes mellitus in first degree relative Hypertension Grandparent Cerebrovascular accident, Onset Age: 40 Malignant neoplasm of prostate, Onset Age: 70 Family history of malignant neoplasm of ovary Other Family history of malignant neoplasm of breast Osteoarthritis Social History Social History Smoking pa
[2023-10-16 00:35] VITALS: BP 134/95; PULSE 67; RESP 18; O2SAT 98
--- NOTE | 2023-10-16 01:29 | ECG_ITS ---
SEE SCANNED COPY FOR CONFIRMED REPORT MTDD
[2023-10-16 01:34] VITALS: BP 133/79; PULSE 72; RESP 20; O2SAT 97
[2023-10-16 02:06] LABS: Troponin I < 0.012 ng/mL (0.000-0.034)
[2023-10-16 02:22] VITALS: BP 109/70; PULSE 69; RESP 14; O2SAT 98
== END 2023-10-16 02:24 | disposition home or self-care (01) ==
PROVIDERS: Emergency Medicine; Emergency Provider Physician Assistant; PCP Internal Medicine
DX: R07.9 Chest pain, unspecified (principal); J32.9 Chronic sinusitis, unspecified; E66.01 Morbid (severe) obesity due to excess calories; Z68.34 Body mass index [BMI] 34.0-34.9, adult; E78.00 Pure hypercholesterolemia, unspecified; M19.90 Unspecified osteoarthritis, unspecified site; K21.9 Gastro-esophageal reflux disease without esophagitis; Z87.440 Personal history of urinary (tract) infections; Z86.2 Personal history of diseases of the blood and blood-forming organs and certain disorders involving the immune mechanism; Z87.442 Personal history of urinary calculi; Z87.891 Personal history of nicotine dependence; Z90.721 Acquired absence of ovaries, unilateral; Z90.79 Acquired absence of other genital organ(s); Z90.710 Acquired absence of both cervix and uterus; R94.31 Abnormal electrocardiogram [ECG] [EKG]
CPT/HCPCS: 36415; 71046; 80053; 83690; 84484; 85025; 85610; 85730; 93005; 99284; A9270

== ENCOUNTER 2024-02-25 14:05 | Outpatient (CLI) | payer BC, SELFPAY ==
--- NOTE | ~2024-02-25 | CT_ITS ---
EXAMINATION: CT abdomen pelvis wo con DATE: 02/25/2024 14:21 INDICATION: Unspecified abdominal pain. TECHNIQUE: Computed tomography (CT) of the abdomen and pelvis was performed without intravenous contr ast. Automated exposure control and iterative reconstruction technique were employed. The dose-length product was 987.42 mGy-cm. COMPARISON: CT abdomen pelvis 09/12/2022 FINDINGS: The visualized portions of the lung bases are clear without pneumonia or pleural effusion. The heart is normal. No pericardial effusion. There is diffuse hepatic steatosis. The gallbladder, sp amparo, pancreas, adrenal glands and right kidney are normal. There are 12 mm and 2 mm stones in left k idney. There are no dilated loops of bowel. The appendix is normal. There are no pathologically enlar ged lymph nodes. There is no free intraperitoneal fluid. There is mild lumbar spondylosis. IMPRESSION: 1. Nonobstructive left kidney stones. 2. Diffuse hepatic steatosis. Reviewed, dictated and finalized at location A.
== END 2024-02-25 14:06 ==
PROVIDERS: PCP Internal Medicine; Visit Provider Internal Medicine
DX: R10.9 Unspecified abdominal pain (principal); N20.0 Calculus of kidney; K76.0 Fatty (change of) liver, not elsewhere classified
CPT/HCPCS: 74176

== ENCOUNTER 2024-03-15 11:36 | Outpatient (CLI) | payer BC, SELFPAY ==
--- NOTE | ~2024-03-15 | XR_ITS ---
Supine and upright views of the abdomen Clinical history: Kidney stone Findings: Bowel gas pattern is nonspecific. No evidence for obstruction or free air.. 12 mm left hernandez l stone present. No definite right renal stone. Osseous structures are intact. Impression: 12 mm left renal stone. Reviewed, dictated and finalized at [facility]. Impression: 12 mm left renal stone.
== END 2024-03-15 11:37 | disposition home or self-care (01) ==
PROVIDERS: PCP Physician Assistant; Visit Provider Physician Assistant
DX: N20.0 Calculus of kidney (principal)
CPT/HCPCS: 74018

== ENCOUNTER 2024-04-12 11:22 | Outpatient (CLI) | payer BC, SELFPAY ==
[2024-04-12 12:11] LABS: Partial Thromboplastin Time 25.3 Seconds (22.3-36.8); Prothrombin Time 13.2 Seconds (11.1-14.7)
== END 2024-04-12 11:23 | disposition home or self-care (01) ==
LOC: ANHSURGERY 11:27
PROVIDERS: PCP Internal Medicine; Visit Provider Urology
DX: Z01.812 Encounter for preprocedural laboratory examination (principal); N20.0 Calculus of kidney
CPT/HCPCS: 36415; 85610; 85730; 87077; 87086; 87186

== ENCOUNTER 2024-04-19 10:12 | Emergency (ER) | payer BC, SELFPAY ==
[2024-04-19 10:13] VITALS: BP 129/96; PULSE 93; RESP 18; TEMP 36.4; O2SAT 99
[2024-04-19] MEDS: SODIUM CHLORIDE 0.9% IV 1,000 ML 150 ML IV CONT (11:20)
[2024-04-19 11:27] LABS: Basophils Percent Auto 0.4 % (0.2-1.2); Eosinophils Absolute Auto 1.1 K/mm3 (0-0.3); Eosinophils Percent Auto 23.2 % (0-4.4); Hematocrit 47.6 % (37.0-47.0); Immature Granulocyte Absolute 0.01 K/mm3 (0.00-0.031); Immature Granulocyte Percent A 0.2 % (0-0.5); Lymphocytes Absolute Auto 0.79 K/mm3 (0.9-3.2); Lymphocytes Percent Auto 16.5 % (18.3-44.2); Mean Corpuscular HGB Conc 33.6 g/dl (32-36); Mean Corpuscular Hemoglobin 28.6 pg (26-34); Mean Corpuscular Volume 85.2 fl (80-100); Mean Platelet Volume 9.9 fl (7.4-10.4); Monocytes Absolute Auto 0.4 K/mm3 (0.1-0.6); Monocytes Percent Auto 8.8 % (2.6-8.5); Neutrophils Absolute Auto 2.4 K/mm3 (1.3-6.7); Neutrophils Percent Auto 50.9 % (45.5-73.1); Platelet Count Result 195 k/mm3 (150-375); Red Blood Count 5.59 M/mm3 (4.2-5.4); Red Cell Distribution Width 12.9 % (11.5-14.5); White Blood Count 4.8 K/mm3 (4.5-10.0)
[2024-04-19 11:29] VITALS: PULSE 79; RESP 17
[2024-04-19 11:31] VITALS: BP 141/96; PULSE 81; RESP 18; TEMP 36.6; O2SAT 100
[2024-04-19 11:37] LABS: Alanine Aminotransferase 38 U/L (6-35); Albumin Level 4.9 g/dL (3.5-5.1); Alkaline Phosphatase 86 U/L (38-126); Anion Gap 14 mmol/L (4-12); Aspartate Amino Transferase 30 U/L (14-36); Bilirubin,Total 0.6 mg/dL (0.2-1.3); Blood Urea Nitrogen 17 mg/dL (7-17); Calcium 9.7 mg/dL (8.4-10.2); Carbon Dioxide 24 mmol/L (22-30); Chloride 100 mmol/L (98-107); Estimated CRCL calculation 68 ml/min; Estimated Glomerular Filt Rate 60; Glucose 96 mg/dL (65-110); Lactic Acid Reflex 1.3 mmol/L (0.7-2.0); Potassium 3.8 mmol/L (3.4-5.0); Sodium 138 mmol/L (137-145)
[2024-04-19 12:13] LABS: Add Urine Microscopic? YES; Appearance Urine Clear (Clear); Bacteria Urine None Seen /hpf; Bilirubin Urine Negative (Negative); Blood Urine Negative (Negative); Color Urine Yellow (Yellow); Glucose Urine UA Negative (Negative); Ketones Urine Trace mg/dL (Negative); Leukocyte Esterase Ur 1+ LEU/UL (Negative); Mucus Urine Present /lpf; Nitrate Urine Negative (Negative); Non Pathogenic Casts 0-2; Protein Urine 1+ mg/dL (Negative); Squamous Epithelial Cell Urine Occasional /hpf (Few); Urobilinogen Urine 0.2 mg/dL (<2.0); WBC Urine 0-5 /hpf (0-3); pH Urine 5.5 (5.0-9.0)
[2024-04-19 12:40] VITALS: BP 121/79; PULSE 81; RESP 15; O2SAT 100
--- NOTE | 2024-04-19 12:49 | PC.NURSE ---
per EDP Freddie ok to infuse IV fluids as bolus. pt VS stable. fluids done at 1250.
--- NOTE | 2024-04-19 13:12 | ED.GENADULT ---
HPI - General Adult General Chief complaint: Unspecified Stated complaint: menengitis Time Seen by Provider: 04/19/24 10:27 Source: patient Limitations: no limitations History of Present Illness HPI narrative: 48-year-old with a history of lupus here with a complaint of body aches, neck pain for the past 4 days. Patient states that she had fever few days ago she also mentions that she had a flu vaccination three days ago , she is scheduled to see urologist for kidney stone , she presently denies any fever , has no urinary symptoms.She states she called her PMD who recommended to come to ER for evaluation Onset (ago): day(s) (4) Location: neck and back Severity: moderate Quality: aching Pain Consistency: constant Exacerbating factors: none Associated symptoms: denies other symptoms Related Data Home Medications Medication Instructions Recorded Confirmed fluticasone propionate 50 1 spray intranasal DAILY 12/25/21 04/12/24 mcg/actuation nasal spray,suspension (Flonase Allergy Relief) cetirizine 10 mg capsule (Zyrtec) 10 mg PO DAILY PRN Allergy Symptoms 08/26/22 04/12/24 Allergies Allergy/AdvReac Type Severity Reaction Status Date / Time No Known Allergies Allergy Verified 04/19/24 10:15 Review of Systems Review of Systems: All systems reviewed & are unremarkable except as noted in HPI and below Constitutional: Constitutional: Reports no additional constitutional complaints Eyes: Eyes: Reports no additional eye complaints ENT: Reports system reviewed and no additional complaints, except as documented Cardiovascular: Cardiovascular: Reports no additional cardiovascular complaints Respiratory: Respiratory: Reports no additional respiratory complaints Musculoskeletal: Musculoskeletal: Reports no additional musculoskeletal complaints Neurologic: Reports system reviewed and no additional complaints, except as documented [facility] Past Medical History Medical History Abdominal pain Allergic rhinitis Allergic rhinitis JITENDRA positive Anemia Anxiety Arthritis Breast pain Cervical radiculopathy Chronic sinusitis, unspecified Diarrhea in adult patient Dietary counseling and surveillance (05/21/15) Dysmenorrhea Ear pain Elevated antinuclear antibody (JITENDRA) level Elevated LFTs Encounter for medication management Epigastric pain Esophageal reflux disease Fatigue Fatty liver Gastro-esophageal reflux disease without esophagitis History of endometriosis Hyperglycemia Injury of calf Iron deficiency anemia secondary to blood loss (chronic) Kidney stones Left foot pain Left shoulder pain Left upper quadrant pain Low grade squamous intraepithelial lesion (LGSIL) on Papanicolaou smear of cervix Menopausal symptom Menorrhagia Nasal congestion Obesity Obesity, Class I, BMI 30-34.9 Otalgia of both ears Pain of right foot Pelvic pain Plantar fasciitis, bilateral PMDD (premenstrual dysphoric disorder) Positive JITENDRA (antinuclear antibody) Post-op pain Preop examination Pseudogout of ankle Pure hypercholesterolemia Spondylarthrosis TMJ (temporomandibular joint disorder) Transient cerebral ischemia Unspecified abnormal cytological findings in specimens from cervix uteri UTI (urinary tract infection) Weight gain finding Surgical History Surgical History H/O bilateral salpingo-oophorectomy H/O laparoscopy endometriosis Dr. Jones H/O tubal ligation Hx of tonsillectomy S/P laparoscopic hysterectomy Family History Family History Mother Patient's mother is in good health Father Family history of elevated blood lipids Family history of diabetes mellitus in first degree relative Hypertension Grandparent Cerebrovascular accident, Onset Age: 40 Malignant neoplasm of prostate, Onset Age: 70 Family history of malignant neoplasm of ovary O
[2024-04-19 13:36] VITALS: BP 124/81; PULSE 84; RESP 16; O2SAT 98
== END 2024-04-19 13:38 | disposition home or self-care (01) ==
PROVIDERS: Emergency Provider Family Medicine; PCP Internal Medicine
DX: B34.9 Viral infection, unspecified (principal); D64.9 Anemia, unspecified; F41.9 Anxiety disorder, unspecified; M19.90 Unspecified osteoarthritis, unspecified site; K21.9 Gastro-esophageal reflux disease without esophagitis; Z87.442 Personal history of urinary calculi; R82.998 Other abnormal findings in urine
CPT/HCPCS: 36415; 80053; 81001; 83605; 85025; 87040; 87086; 96360; 96361; 99284; J7030

== ENCOUNTER 2024-05-02 08:28 | Outpatient (CLI) | payer BC, SELFPAY ==
[2024-05-02 09:20] LABS: INR 0.9; Partial Thromboplastin Time 25.8 Seconds (22.3-36.8); Prothrombin Time 12.9 Seconds (11.1-14.7)
== END 2024-05-02 08:29 | disposition home or self-care (01) ==
PROVIDERS: PCP Internal Medicine; Visit Provider Urology
DX: N20.0 Calculus of kidney (principal)
CPT/HCPCS: 36415; 85610; 85730; 87086

== ENCOUNTER 2024-05-06 03:02 | Day surgery (SDC) | payer BC, SELFPAY ==
--- NOTE | 2024-04-05 12:58 | P.HP_ITS ---
History of Present Illness History of Present Illness Consent: Risks, benefits, and alternatives have been discussed and questions answered. Patient agrees to proceed with procedure. Chief complaint: Left Renal Stone Narrative: Kamini Saravia is a 48 year old female Has a known stone in her left kidney that has become symptomatic, causing intermittent left flank pain. Recent imaging demonstrates a 12 mm left stone. After discussion of options she is elected for intervention including lithotripsy. She is aware of the risks including, but not limited to, need for additional procedures, hematuria, adverse cardiopulmonary events perinephric. Review of Systems Review of Systems: All systems reviewed & are unremarkable except as noted in HPI and below PMFSH Past Medical History Medical History Abdominal pain Allergic rhinitis Allergic rhinitis JITENDRA positive Anemia Anxiety Arthritis Breast pain Cervical radiculopathy Chronic sinusitis, unspecified Diarrhea in adult patient Dietary counseling and surveillance (05/21/15) Dysmenorrhea Ear pain Elevated antinuclear antibody (JITENDRA) level Elevated LFTs Encounter for medication management Epigastric pain Esophageal reflux disease Fatigue Fatty liver Gastro-esophageal reflux disease without esophagitis History of endometriosis Hyperglycemia Injury of calf Iron deficiency anemia secondary to blood loss (chronic) Kidney stones Left foot pain Left shoulder pain Left upper quadrant pain Low grade squamous intraepithelial lesion (LGSIL) on Papanicolaou smear of cervix Menopausal symptom Menorrhagia Nasal congestion Obesity Obesity, Class I, BMI 30-34.9 Otalgia of both ears Pain of right foot Pelvic pain Plantar fasciitis, bilateral PMDD (premenstrual dysphoric disorder) Positive JITENDRA (antinuclear antibody) Post-op pain Preop examination Pseudogout of ankle Pure hypercholesterolemia Spondylarthrosis TMJ (temporomandibular joint disorder) Transient cerebral ischemia Unspecified abnormal cytological findings in specimens from cervix uteri UTI (urinary tract infection) Weight gain finding Surgical History Surgical History H/O bilateral salpingo-oophorectomy H/O laparoscopy endometriosis Dr. Jones H/O tubal ligation Hx of tonsillectomy S/P laparoscopic hysterectomy Family History Family History Mother Patient's mother is in good health Father Family history of elevated blood lipids Family history of diabetes mellitus in first degree relative Hypertension Grandparent Cerebrovascular accident, Onset Age: 40 Malignant neoplasm of prostate, Onset Age: 70 Family history of malignant neoplasm of ovary Other Family history of malignant neoplasm of breast Osteoarthritis Social History Social History Smoking packs per day: 0.3 Smoking cigarettes per day: 6.0 Years smoked: 9 Smoking pack-years: 2.70 Smoking status: Former smoker Tobacco type: cigarettes Second hand tobacco smoke exposure: No Smoking end date: 07/06/06 Alcohol intake: current Alcohol use details: ONCE A MONTH Substance use: former Substance use type: marijuana Other substance usage details: EDIBBLES Lack of Transportation: No Lack of Food: Never True Current Housing: I Have Housing Concerned About Future Housing: No Difficulty Paying Gas/Electric Bills: No Difficulty Paying for Meds: No Currently Unemployed: No Education: Master's Degree or Higher Difficulty w/ Childcare or Family Care: No Living arrangements: with family Occupation/Education: occupation Gender identity (if verbalized by the patient): Female Spiritual care concerns: No Meds Home Medications and Allergies Home Medications Medication Instructions Recorded Confirmed Type fluticasone propionate 50 1 spray intranasal DAILY 12/25/21 01/05/24 History mcg/actuation nasal spray,suspension (Flonase Allergy Relief) cetirizine 10 mg capsule (Zyrtec) 10 mg PO DAILY PRN 08/26/22 01/05/24 History hydroxychloroquine 200 mg tablet See Rx Instructions .Route 11/11/23 01/05/24 Rx .COMPLEX #180 tabs semaglutide (weight loss) 1.7 1.7 mg (0.75 mL) subcut WEEKLY #3 01/06/24 01/06/24 Rx mg/0.75 mL subcutaneous pen mL injector (Wegovy) semaglutide (weight loss) 1 mg/0.5 1 mg (0.5 mL) subcut WEEKLY #2 mL 02/07/24 R x mL subcutaneous pen injector (Wegovy) Allergies Allergy/AdvReac Type Severity Reaction Status Date / Time No Known Allergies Allergy Verified 01/05/24 10:15 Exam Const: General: no acute distress Resp: Effort & Inspection: normal respiratory effort GI: Inspection: non-distended GI Palp: No abdominal tenderness and No Gua rding due to palpation present (GI) Auscultation: normal bowel sounds Assessment and Plan Assessment and plan (1) Left renal stone: Code(s): N20.0 - Calculus of kidney Status: Acute Assessment and Plan: * Cystoscopy, left ureteral stent placement, left ESWL
[2024-04-12 10:15] VITALS: BMI 29.9
--- NOTE | 2024-04-12 10:20 | PC.NURSE ---
Report to the Outpatient Waiting Room, entrance under the green pavilion located off [facility], at time _0600_ on date _[id number]_. Planned Procedure Time: _0730_.? Time changes happen often and if your time is changed the preop area will call you the afternoon before. - You and your visitor will be asked to self-screen and do not enter if you have any COVID symptoms. Please call surgeon if you need to reschedule. - A mask is optional within the hospital at this time. Patients may have clear liquids (water, carbonated beverages, clear teas, apple juice) until 3 hours prior to surgery with a maximum of 20 ounces. - No food from midnight until time of surgery and no smoking Take only the following medications with a SIP of water on the morning of surgery: ___None DO NOT STOP ANY OF YOUR OTHER PRESCRIPTION MEDICATIONS PRIOR TO SURGERY EXCEPT THE FOLLOWING Medications to discontinue per physician None Please no make-up, nail welsh, hairspray, perfume, deodorant, or body powder the day of surgery.? No jewelry (including any body piercings) or valuables the day of surgery, leave them at home.? Please take a shower or bath the night before, or the morning of, surgery with an antibacterial soap.? Wear comfortable, loose fitting clothing.? - Jewelry must be removed prior to entering the operating room.? Rings and piercings that are not removed may be cut off. - The hospital will not accept responsibility for valuables.? - Please leave all valuables, including medications, at home the day of surgery. If you are going home after surgery, a licensed tilt tray driver must drive you home.? - NO public transportation without another adult if you receive anesthesia. - We recommend that an adult stay with you for 24 hours following discharge. - We also recommend that you do not drive, make important decision, drink alcoholic beverages, or take any drugs that were not prescribed by your health care provider for at least 24 hours after your discharge time. Follow any additional instructions given to you from your surgeon. Telephone instructions given to __Beth__and asked if any additional questions and then verbalized understanding. Patient advised to call surgeon office or pre surgery nurse liaison [phone] if any additional questions.
--- NOTE | 2024-04-15 06:32 | WPDHPUPDATE1 ---
History and Physical Update Update Date/Time: 04/15/24 06:32 History and Physical has been reviewed, including an updated exam of the patient. There are NO changes in the patient's condition. Risks, benefits, and alternatives have been discussed and questions answered. Patient agrees to proceed with procedure.
--- NOTE | 2024-04-22 11:44 | P.HP_ITS ---
History of Present Illness History of Present Illness Consent: Risks, benefits, and alternatives have been discussed and questions answered. Patient agrees to proceed with procedure. Chief complaint: Left Renal Stone Narrative: Kamini Saravia is a 48 year old female is known to have stone in her left kidney for more than year. She recently saw our physician's assistant corporate secretary, Marylin Pedro, imaging shows now 2 stones in her left kidney, 1 measuring 12 mm and a 2nd 2 mm. After discussion of various options she has elected for left ESWL in is aware that, based on the size of the stones, we should place a left ureteral stent a. She is aware the risk including, limited to, need additional procedures, hematuria and perinephric hematoma. Review of Systems Cardiovascular: Cardiovascular: Denies chest pain, Denies lightheadedness, Denies palpitations and Denies dyspnea Respiratory: Respiratory: Denies dyspnea Gastrointestinal: Gastrointestinal: Denies diarrhea, Denies nausea and Denies vomiting Genitourinary: Genitourinary: Denies hematuria and Denies dysuria Endocrine: Endocrine: Denies palpitations [facility] Past Medical History Medical History Abdominal pain Allergic rhinitis Allergic rhinitis JITENDRA positive Anemia Anxiety Arthritis Breast pain Cervical radiculopathy Chronic sinusitis, unspecified Diarrhea in adult patient Dietary counseling and surveillance (05/21/15) Dysmenorrhea Ear pain Elevated antinuclear antibody (JITENDRA) level Elevated LFTs Encounter for medication management Epigastric pain Esophageal reflux disease Fatigue Fatty liver Gastro-esophageal reflux disease without esophagitis History of endometriosis Hyperglycemia Injury of calf Iron deficiency anemia secondary to blood loss (chronic) Kidney stones Left foot pain Left shoulder pain Left upper quadrant pain Low grade squamous intraepithelial lesion (LGSIL) on Papanicolaou smear of cervix Menopausal symptom Menorrhagia Nasal congestion Obesity Obesity, Class I, BMI 30-34.9 Otalgia of both ears Pain of right foot Pelvic pain Plantar fasciitis, bilateral PMDD (premenstrual dysphoric disorder) Positive JITENDRA (antinuclear antibody) Post-op pain Preop examination Pseudogout of ankle Pure hypercholesterolemia Spondylarthrosis TMJ (temporomandibular joint disorder) Transient cerebral ischemia Unspecified abnormal cytological findings in specimens from cervix uteri UTI (urinary tract infection) Weight gain finding Surgical History Surgical History H/O bilateral salpingo-oophorectomy H/O laparoscopy endometriosis Dr. Jones H/O tubal ligation Hx of tonsillectomy S/P laparoscopic hysterectomy Family History Family History Mother Patient's mother is in good health Father Family history of elevated blood lipids Family history of diabetes mellitus in first degree relative Hypertension Grandparent Cerebrovascular accident, Onset Age: 40 Malignant neoplasm of prostate, Onset Age: 70 Family history of malignant neoplasm of ovary Other Family history of malignant neoplasm of breast Osteoarthritis Social History Social History Smoking packs per day: 0.3 Smoking cigarettes per day: 6.0 Years smoked: 10 Smoking pack-years: 3.00 Smoking status: Former smoker Tobacco type: cigarettes Second hand tobacco smoke exposure: No Smoking end date: 04/12/07 Alcohol intake: current Alcohol use details: ONCE A MONTH Substance use: former Substance use type: marijuana Other substance usage details: EDIBBLES Lack of Transportation: No Lack of Food: Never True Current Housing: I Have Housing Concerned About Future Housing: No Difficulty Paying Gas/Electric Bills: No Difficulty Paying for Meds: No Currently Unemployed: No Education: Master's Degree or Higher Difficulty w/ Childcare or Family Care: No Living arrangements: with family Occupation/Education: occupation Gender identity (if verbalized by the patient): Female Spiritual care concerns: No Meds Home Medications and Allergies Home Medications Medication Instructions Recorded Confirmed Type fluticasone propionate 50 1 spray intranasal DAILY 12/25/21 04/12/24 History mcg/actuation nasal spray,suspension (Flonase Allergy Relief) cetirizine 10 mg capsule (Zyrtec) 10 mg PO DAILY PRN Allergy Symptoms 08/26/22 04/12/24 History hydroxychloroquine 200 mg tablet See Rx Instructions .Route 11/11/23 04/12/24 Rx .COMPLEX #180 tabs semaglutide (weight loss) 1.7 1.7 mg (0.75 mL) subcut WEEKLY #3 01/06/24 04/12/24 Rx mg/0.75 mL subcutaneous pen mL injector (Wegovy) Allergies Allergy/AdvReac Type Severity Reaction Status Date / Time No Known Allergies Allergy Verified 04/19/24 10:15 Exam Const: General: no acute distress Resp: Effort & Inspection: normal respiratory effort GI: Inspection: non-distended GI Palp: No abdominal tenderness and No Guarding due to palpation present (GI) Auscultation: normal bowel sounds Assessment and Plan Assessment and plan (1) Left renal stone: Code(s): N20.0 - Calculus of kidney Status: Acute Assessment and Plan: * Cystoscopy, left ureteral stent placement, left ESWL
--- NOTE | 2024-04-28 12:25 | PC.NURSE ---
Report to the Outpatient Waiting Room, entrance under the green pavilion located off [facility], at time _0630_ on date _[id number]_. Planned Procedure Time: _0830_.? Time changes happen often and if your time is changed the preop area will call you the afternoon before. - You and your visitor will be asked to self-screen and do not enter if you have any COVID symptoms. Please call surgeon if you need to reschedule. - A mask is optional within the hospital at this time. Patients may have clear liquids (water, carbonated beverages, clear teas, apple juice) until 3 hours prior to surgery with a maximum of 20 ounces. - No food from midnight until time of surgery and no smoking Take only the following medications with a SIP of water on the morning of surgery: __Ok to use Flonase____ DO NOT STOP ANY OF YOUR OTHER PRESCRIPTION MEDICATIONS PRIOR TO SURGERY EXCEPT THE FOLLOWING Medications to discontinue per physician __Semaglutide____ Date to take last [id number] Please no make-up, nail costa rican, hairspray, perfume, deodorant, or body powder the day of surgery.? No jewelry (including any body piercings) or valuables the day of surgery, leave them at home.? Please take a shower or bath the night before, or the morning of, surgery with an antibacterial soap.? Wear comfortable, loose fitting clothing.? - Jewelry must be removed prior to entering the operating room.? Rings and piercings that are not removed may be cut off. - The hospital will not accept responsibility for valuables.? - Please leave all valuables, including medications, at home the day of surgery. If you are going home after surgery, a licensed screw driver operator must drive you home.? - NO public transportation without another adult if you receive anesthesia. - We recommend that an adult stay with you for 24 hours following discharge. - We also recommend that you do not drive, make important decision, drink alcoholic beverages, or take any drugs that were not prescribed by your health care provider for at least 24 hours after your discharge time. Follow any additional instructions given to you from your surgeon. Telephone instructions given to __Beth___and asked if any additional questions and then verbalized understanding. Patient advised to call surgeon office or pre surgery nurse liaison [phone] if any additional questions.
[2024-05-06] VITALS (8 sets, daily range): BP systolic 116–159; BP diastolic 82–101; PULSE 68–83; RESP 12–18; TEMP 36.3–36.7; O2SAT 99–100; BMI 29.6
--- NOTE | ~2024-05-06 | XR_ITS ---
Supine and upright views of the abdomen Clinical history: Lithotripsy COMPARISON: 03/15/2024 Findings: Bowel gas pattern is nonspecific. No evidence for obstruction or free air. Stable left hernandez l stone measuring 13 mm in diameter.. Osseous structures are intact. Impression: Stable 13 mm left renal stone. Reviewed, dictated and finalized at [facility]. Impression: Stable 13 mm left renal stone.
--- NOTE | 2024-05-06 06:33 | WPDHPUPDATE1 ---
History and Physical Update Update Date/Time: 05/06/24 06:33 History and Physical has been reviewed, including an updated exam of the patient. There are NO changes in the patient's condition. Risks, benefits, and alternatives have been discussed and questions answered. Patient agrees to proceed with procedure.
[2024-05-06] MEDS: LACTATED RINGERS 1,000 ML 30 ML IV CONT (07:10)
--- NOTE | 2024-05-06 07:55 | P.PNAN_ITS ---
Anes - Initial Pre Proc Eval Procedure: Operation Date: 05/06/24 08:30 Proposed Procedures p Left Extracorporeal Shock Wave Lithotripsy - Messi Martin MD s Left Retrograde Pyelogram, Possible Left Ureteral Stent Placement - Messi Martin MD Date/Time: 05/06/24 07:55 Surgeon: Messi Martin MD Pre Op Diagnosis: Left Renal Stone Patient Data Age: 48 Gender: F Height: 1.68 m Weight: 83.2 kg Last Vital Signs Temp 36.3 C L 05/06/24 06:50 Pulse 83 05/06/24 06:50 Resp 18 05/06/24 06:50 BP 116/82 05/06/24 06:50 Pulse Ox 99 05/06/24 06:50 O2 Del Method Room Air 05/06/24 06:50 Allergies Allergy/AdvReac Type Severity Reaction Status Date / Time No Known Allergies Allergy Verified 05/06/24 07:20 Home Medications Medication Instructions Recorded Confirmed Type fluticasone propionate 50 1 spray intranasal DAILY 12/25/21 05/06/24 History mcg/actuation nasal spray,suspension (Flonase Allergy Relief) cetirizine 10 mg capsule (Zyrtec) 10 mg PO DAILY PRN Allergy Symptoms 08/26/22 04/28/24 History hydroxychloroquine 200 mg tablet See Rx Instructions .Route 11/11/23 04/28/24 Rx .COMPLEX #180 tabs semaglutide (weight loss) 1.7 1.7 mg (0.75 mL) subcut WEEKLY #3 04/28/24 05/06/24 Rx mg/0.75 mL subcutaneous pen mL injector (Wegovy) Patient hx anesthesia problems: none Family hx anesthesia problems: none Results Review: All pre-operative results and documents have been reviewed as part of the pre- operative evaluation. [facility] Past Medical History Medical History Abdominal pain Allergic rhinitis Allergic rhinitis JITENDRA positive Anemia Anxiety Arthritis Breast pain Cervical radiculopathy Chronic sinusitis, unspecified Diarrhea in adult patient Dietary counseling and surveillance (05/21/15) Dysmenorrhea Ear pain Elevated antinuclear antibody (JITENDRA) level Elevated LFTs Encounter for medication management Epigastric pain Esophageal reflux disease Fatigue Fatty liver Gastro-esophageal reflux disease without esophagitis History of endometriosis Hyperglycemia Injury of calf Iron deficiency anemia secondary to blood loss (chronic) Kidney stones Left foot pain Left shoulder pain Left upper quadrant pain Low grade squamous intraepithelial lesion (LGSIL) on Papanicolaou smear of cervix Menopausal symptom Menorrhagia Nasal congestion Obesity Obesity, Class I, BMI 30-34.9 Otalgia of both ears Pain of right foot Pelvic pain Plantar fasciitis, bilateral PMDD (premenstrual dysphoric disorder) Positive JITENDRA (antinuclear antibody) Post-op pain Preop examination Pseudogout of ankle Pure hypercholesterolemia Spondylarthrosis TMJ (temporomandibular joint disorder) Transient cerebral ischemia Unspecified abnormal cytological findings in specimens from cervix uteri UTI (urinary tract infection) Weight gain finding Surgical History Surgical History H/O bilateral salpingo-oophorectomy H/O laparoscopy endometriosis Dr. Jones H/O tubal ligation Hx of tonsillectomy S/P laparoscopic hysterectomy Family History Family History Mother Patient's mother is in good health Father Family history of elevated blood lipids Family history of diabetes mellitus in first degree relative Hypertension Grandparent Cerebrovascular accident, Onset Age: 40 Malignant neoplasm of prostate, Onset Age: 70 Family history of malignant neoplasm of ovary Other Family history of malignant neoplasm of breast Osteoarthritis Social History Social History Smoking packs per day: 0.3 Smoking cigarettes per day: 6.0 Years smoked: 10 Smoking pack-years: 3.00 Smoking status: Former smoker Tobacco type: cigarettes Second hand tobacco smoke exposure: No Smoking end date: 04/12/07 Alcohol intake: current Alcohol use details: ONCE A MONTH Substance use: former Substance use type: marijuana Other substance usage details: EDIBBLES Lack of Transportation: No Lack of Food: Never True Current Housing: I Have Housing Concerned About Future Housing: No Difficulty Paying Gas/Electric Bills: No Difficulty Paying for Meds: No Currently Unemployed: No Education: Master's Degree or Higher Difficulty w/ Childcare or Family Care: No Living arrangements: with family Occupation/Education: occupation Gender identity (if verbalized by the patient): Female Spiritual care concerns: No Anes - Eval Final PreProcedure Day of Procedure 05/06/24 07:55 Patient weight: overweight Heart: regular rate and rhythm Lungs: clear to auscultation Airway: Mallampati scale class II Neurological: alert and oriented Last oral intake: >/= 8 hours ASA classification: III Emergent: no Anesthetic plan: proceed Anesthesia type and monitoring: general LMA and standard monitoring Results Review: All pre-operative results and documents have been reviewed as part of the pre- operative evaluation. Informed Consent: The patient's anesthetic plan and its attendant risks and benefits were discussed with the patient/family/POA. Questions were solicited and answers provided to the satisfaction of the patient/family/POA.
[2024-05-06] MEDS: ceFAZolin 2 GM/D5W 50 ML 2 GM/50 ML BAG IVPB (08:15)
--- NOTE | 2024-05-06 08:51 | P.OP_ITS ---
Procedure Note - Detailed Date of Procedure 05/06/24 Pre-op Diagnosis Left Renal Stone Post-op Diagnosis Same Procedure Performed Cystoscopy, left ureteral stent placement, left ESWL Surgeon Messi Martin MD Anesthesia General Description of Procedure The patient was brought to the operative suite where she was placed in the frog- legged position on the Dornier lithotripter table. Flexible cystoscopy was undertaken with a 16F flexible cystoscopy. Her urethra and bladder neck were endoscopically normal. The bladder mucosa was normal and there was a single, orthotopic ureteral orifice bilaterally. A 0.035 glidewire was advanced into the left renal pelvis under fluoroscopy. A 4.8F J-J ureteral stent was positioned with the proximal coil in the renal pelvis and the distal coil in the bladder. The patient was then repositioned in the supine position and the focal point of the lithotriptor was placed at a 12-13mm left renal pelvic calculus. A total of 2500 shocks were delivered at a power setting of 4. There appeared to be good fragmentation of the stone. The patient tolerated the procedure well and was taken to the recovery room in good condition. Drains Yes Packing No Pathology None sent
[2024-05-06] MEDS: oxyCODONE HCL (*CRX) 5 MG TAB IR PO (10:10)
== END 2024-05-06 10:50 | disposition home or self-care (01) ==
PROVIDERS: PCP Internal Medicine; Visit Provider Urology
PROC: (CPT 50590; principal; 2024-05-06 08:30)
PROC: (CPT 52352; 2024-05-06 08:30)
DX: N20.0 Calculus of kidney (principal); Z87.891 Personal history of nicotine dependence; Z79.85 Long-term (current) use of injectable non-insulin antidiabetic drugs
CPT/HCPCS: 52332; 50590; 74018; A9270; C1758; C1769; C2617; J0690; J1100; J2003; J2250; J2405; J2704; J3010; J7030; J7120; Q9966

== ENCOUNTER 2024-05-17 14:32 | Outpatient (CLI) | payer BC, SELFPAY ==
--- NOTE | ~2024-05-17 | XR_ITS ---
XR abdomen/kub 1V Ordering provider: Messi Martni MD History: . N20.0 - Calculus of kidney . Comparison: None. FINDINGS: BOWEL: Nonobstructive bowel gas pattern. ORGANOMEGALY: None. SIGNIFICANT PATHOLOGIC CALCIFICATIONS: Multiple stones in the left kidney with left double-J stent. OTHER: No free air is seen under the diaphragm. IMPRESSION: NO ACUTE ABDOMINAL FINDINGS. Multiple left kidney stones with left double-J stent. Reviewed, dictated and finalized at location A. [facility]
== END 2024-05-17 14:33 | disposition home or self-care (01) ==
LOC: MICIMG 14:33
PROVIDERS: PCP Urology; Visit Provider Urology
DX: N20.0 Calculus of kidney (principal); Z96.0 Presence of urogenital implants
CPT/HCPCS: 74018

== ENCOUNTER 2024-05-18 22:05 | Emergency (ER) | payer BC, SELFPAY ==
--- NOTE | ~2024-05-18 | CT_ITS ---
Non-contrast CT scan of the Abdomen and Pelvis Clinical indication: Fever, left ureteral stent Technique: 2.5 mm axial scans were obtained through the abdomen and pelvis without intravenous or or al contrast. Dose reduction technique was used on this scan by utilizing automated exposure control a nd iterative reconstruction technique. The dose-length product (DLP) was 980.16 mGy-cm. COMPARISON: 02/25/2024 Findings: Images through the lung bases reveal no abnormalities. Right kidney unremarkable. Left ureteral stent in place, with minimal left hydronephrosis. There is a 4 mm stone at the left renal pelvis near the proximal pigtail of the stent. Additional small nonobst ructing left lower pole renal stones are present, measuring up to 3 mm. There are also 2 small 1-2 mm stones in the proximal left ureter adjacent to the stent (axial images 96, 99). Probable diffuse hepatic steatosis. The spleen, pancreas, gallbladder, and adrenals appear normal. T here is no aortic aneurysm. There is no evidence of bowel obstruction. Images through the pelvis were performed. There is no evidence of ascites or lymphadenopathy. Urinary bladder otherwise unremarkable. No adnexal mass seen. Status post hysterectomy. Impression: Left ureteral stent in place. There are 2 tiny stones in the proximal left ureter with additional sma ll stones the left renal pelvis and left lower renal pole. Minimal left hydronephrosis. Diffuse hepatic steatosis. Reviewed, dictated and finalized at [facility]. Y HOST/HOSTESS Impression: Left ureteral stent in place. There are 2 tiny stones in the proximal left uret er with additional small stones the left renal pelvis and left lower renal pole . Minimal left hydronephrosis. Diffuse hepatic steatosis.
[2024-05-18 22:13] VITALS: BP 104/71; PULSE 95; RESP 19; TEMP 36.5; O2SAT 100
[2024-05-19 02:18] LABS: Basophils Percent Auto 0.2 % (0.2-1.2); Eosinophils Percent Auto 9.5 % (0-4.4); Hemoglobin 12.5 g/dL (12.0-15.0); Immature Granulocyte Absolute 0.03 K/mm3 (0.00-0.031); Immature Granulocyte Percent A 0.3 % (0-0.5); Lymphocytes Absolute Auto 0.48 K/mm3 (0.9-3.2); Lymphocytes Percent Auto 4.6 % (18.3-44.2); Mean Corpuscular HGB Conc 34.7 g/dl (32-36); Mean Corpuscular Hemoglobin 29.1 pg (26-34); Mean Corpuscular Volume 83.7 fl (80-100); Mean Platelet Volume 9.3 fl (7.4-10.4); Monocytes Absolute Auto 0.4 K/mm3 (0.1-0.6); Monocytes Percent Auto 3.9 % (2.6-8.5); Neutrophils Absolute Auto 8.5 K/mm3 (1.3-6.7); Neutrophils Percent Auto 81.5 % (45.5-73.1); Platelet Count Result 205 k/mm3 (150-375); Red Cell Distribution Width 12.8 % (11.5-14.5); White Blood Count 10.4 K/mm3 (4.5-10.0)
[2024-05-19] MEDS: SODIUM CHLORIDE 0.9% IV 1,000 ML 999 ML IV CONT (02:20)
[2024-05-19] MEDS: ACETAMINOPHEN 500 MG TABLET 1000 MG PO (02:20)
[2024-05-19] MEDS: diphenhydrAMINE HCl INJ 50 MG/ML VIAL 25 MG IV PUSH (02:22)
[2024-05-19] MEDS: METOCLOPRAMIDE HCL INJ 10 MG/2 ML VIAL IV PUSH (02:22)
[2024-05-19 02:26] VITALS: BP 101/57; PULSE 91; RESP 20; TEMP 36.9; O2SAT 99
[2024-05-19 02:31] LABS: Alanine Aminotransferase 18 U/L (6-35); Alkaline Phosphatase 99 U/L (38-126); Anion Gap 7 mmol/L (4-12); Aspartate Amino Transferase 18 U/L (14-36); Bilirubin,Total 1.1 mg/dL (0.2-1.3); Blood Urea Nitrogen 13 mg/dL (7-17); Calcium 9.3 mg/dL (8.4-10.2); Carbon Dioxide 24 mmol/L (22-30); Chloride 101 mmol/L (98-107); Estimated CRCL calculation 74 ml/min; Estimated Glomerular Filt Rate > 60; Glucose 108 mg/dL (65-110); Potassium 3.9 mmol/L (3.4-5.0); Sodium 132 mmol/L (137-145)
[2024-05-19 02:52] LABS: Influenza A QL RT-PCR Negative (Negative); Influenza B QL RT-PCR Negative (Negative); RSV RNA, RT-PCR Negative (Negative); SARS-CoV-2 RNA PCR Negative (Negative)
--- NOTE | 2024-05-19 03:03 | ED.GENADULT ---
HPI - General Adult General Chief complaint: Headache <CHRISTOPHER Moulton Last Filed: 05/19/24 03:34> Stated complaint: headache, fever, chills <CHRISTOPHER Moulton Last Filed: 05/19/24 03:34> Time Seen by Provider: 05/19/24 01:38 <CHRISTOPHER Moulton Last Filed: 05/19/24 03:34> Source: patient and old records reviewed <CHRISTOPHER Moulton Last Filed: 05/19/24 03:34> Mode of arrival: ambulatory <CHRISTOPHER Moulton Last Filed: 05/19/24 03:34> Limitations: no limitations <CHRISTOPHER Moulton Last Filed: 05/19/24 03:34> History of Present Illness HPI narrative: Patient is a 48-year-old female who presents the ED with report of nausea, vomiting, fevers, headache. Patient reports she underwent left-sided ESWL with ureteral stent placement with Dr. Martin on 05/06. She states a couple of days ago, she began having UTI symptoms. She was seen in the office, was diagnosed with a UTI, and given Bactrim. She has had 3 doses of this so far. Yesterday into today, she has been having persistent fevers, up to 102? F, nausea, vomiting, and a persistent headache. She has been taking Tylenol and ibuprofen at home without improvement. Has a remote history of migraines. Last had Tylenol around 3p on 05/18. Denies significant abdominal or flank pain, does have some discomfort. <CHRISTOPHER Moulton Last Filed: 05/19/24 03:34> Related Data Home medications: Home Medications Medication Instructions Recorded Confirmed fluticasone propionate 50 1 spray intranasal DAILY 12/25/21 05/06/24 mcg/actuation nasal spray,suspension (Flonase Allergy Relief) cetirizine 10 mg capsule (Zyrtec) 10 mg PO DAILY PRN Allergy Symptoms 08/26/22 04/28/24 <CHRISTOPHER Moulton Last Filed: 05/19/24 03:34> Allergies/adverse reactions: Allergies Allergy/AdvReac Type Severity Reaction Status Date / Time No Known Allergies Allergy Verified 05/18/24 22:06 <Joanie Huntley PA-C - Last Filed: 05/19/24 03:34> Review of Systems Review of Systems: All systems reviewed & are unremarkable except as noted in HPI. <Joanie Huntley PA-C - Last Filed: 05/19/24 03:34> All systems reviewed & are unremarkable except as noted in HPI and below <Joanie Huntley PA-C - Last Filed: 05/19/24 03:34> FOR[facility]LY [facility] Past Medical History Medical History: Medical History Abdominal pain Allergic rhinitis Allergic rhinitis JITENDRA positive Anemia Anxiety Arthritis Breast pain Cervical radiculopathy Chronic sinusitis, unspecified Diarrhea in adult patient Dietary counseling and surveillance (05/21/15) Dysmenorrhea Ear pain Elevated antinuclear antibody (JITENDRA) level Elevated LFTs Encounter for medication management Epigastric pain Esophageal reflux disease Fatigue Fatty liver Gastro-esophageal reflux disease without esophagitis History of endometriosis Hyperglycemia Injury of calf Iron deficiency anemia secondary to blood loss (chronic) Kidney stones Left foot pain Left shoulder pain Left upper quadrant pain Low grade squamous intraepithelial lesion (LGSIL) on Papanicolaou smear of cervix Menopausal symptom Menorrhagia Nasal congestion Obesity Obesity, Class I, BMI 30-34.9 Otalgia of both ears Pain of right foot Pelvic pain Plantar fasciitis, bilateral PMDD (premenstrual dysphoric disorder) Positive JITENDRA (antinuclear antibody) Post-op pain Preop examination Pseudogout of ankle Pure hypercholesterolemia Spondylarthrosis TMJ (temporomandibular joint disorder) Transient cerebral ischemia Unspecified abnormal cytological findings in specimens from cervix uteri UTI (urinary tract infection) Weight gain finding <Joanie Huntley PA-C - Last Filed: 05/19/24 03:34> Surgical History Surgical History: Surgical History H/O bilateral salpingo-oophorectomy H/O laparoscopy endometriosis Dr. Jones H/O tubal ligation Hx of tonsillectomy S/P laparoscopic hysterectomy <Joanie Huntley PA-C - Last Filed: 05/19/24 03:34> Family History Family History: Family History Mother Patient's mother is in good health Father Family history of elevated blood lipids Family history of diabetes mellitus in first degree relative Hypertension Grandparent Cerebrovascular accident, Onset Age: 40 Malignant neoplasm of prostate, Onset Age: 70 Family history of malignant neoplasm of ovary Other Family history of malignant neoplasm of breast Osteoarthritis <Joanie Huntley PA-C - Last Filed: 05/19/24 03:34> Social History Social History: Social History Smoking packs per day: 0.3 Smoking cigarettes per day: 6.0 Years smoked: 10 Smoking pack-years: 3.00 Smoking status: Former smoker Tobacco type: cigarettes Second hand tobacco smoke exposure: No Smoking end date: 04/12/07 Alcohol intake: current Alcohol use details: ONCE A MONTH Substance use: former Substance use type: marijuana Other substance usage details: EDIBBLES Lack of Transportation: No Lack of Food: Never True Current Housing: I Have Housing Concerned About Future Housing: No Difficulty Paying Gas/Electric Bills: No Difficulty Paying for Meds: No Currently Unemployed: No Education: Master's Degree or Higher Difficulty w/ Childcare or Family Care: No Living arrangements: with family Occupation/Education: occupation Gender identity (if verbalized by the patient): Female Spiritual care concerns: No <Joanie Huntley PA-C - Last Filed: 05/19/24 03:34> Exam Narrative: GENERAL: Mildly ill appearing, well-nourished, non-toxic, in no acute distress. HEAD: Normocephalic, atraumatic. RESPIRATORY: Airway patent, respirations nonlabored. Clear to auscultation bilaterally, no rales, rhonchi, wheezing. CARDIOVASCULAR: Borderline tachycardic with regular rhythm without murmurs, rubs, or gallops. Peripheral pulses are intact. ABDOMINAL: Soft, no significant tenderness throughout abdomen, nondistended. Normoactive BS. MUSCULOSKELETAL: Moves all extremities. No gross deformities. SKIN: Warm, dry, flushed appearance. NEURO: A&O X3. Speech clear. Cranial nerves II-XII grossly intact. No ataxic movements. PSYCHIATRIC: Appropriate mood and affect. Normal interaction. <Joanie Huntley PA-C - Last Filed: 05/19/24 03:34> Course Vital Signs Vital signs: Vital Signs Temperature 36.5 C 05/18/24 22:13 Pulse Rate 95 05/18/24 22:13 Respiratory Rate 19 05/18/24 22:13 Blood Pressure 104/71 05/18/24 22:13 Pulse Oximetry 100 05/18/24 22:13 Oxygen Delivery Room Air 05/18/24 22:13 Temperature 36.9 C 05/19/24 02:26 Pulse Rate 64 05/19/24 05:13 Respiratory Rate 15 05/19/24 05:13 Blood Pressure 98/60 L 05/19/24 05:13 Pulse Oximetry 98 05/19/24 05:13 Oxygen Delivery Room Air 05/18/24 22:13 <Joanie Huntley PA-C - Last Filed: 05/19/24 03:34> Vital Signs Temperature 36.5 C 05/18/24 22:13 Pulse Rate 95 05/18/24 22:13 Respiratory Rate 19 05/18/24 22:13 Blood Pressure 104/71 05/18/24 22:13 Pulse Oximetry 100 05/18/24 22:13 Oxygen Delivery Room Air 05/18/24 22:13 Temperature 36.9 C 05/19/24 02:26 Pulse Rate 64 05/19/24 05:13 Respiratory Rate 15 05/19/24 05:13 Blood Pressure 98/60 L 05/19/24 05:13 Pulse Oximetry 98 05/19/24 05:13 Oxygen Delivery Room Air 05/18/24 22:13 <Nasir Montes De Oca MD - Last Filed: 05/19/24 07:08> Medical Decision Making MDM Narrative Medical decision making narrative: Patient presented to ED with nausea, vomiting, fevers, headache, recent left-sided ureteral stent placement with lithotripsy. Vital signs are stable upon arrival. Patient borderline tachycardic, borderline febrile. Fluids and Tylenol initiated. Will order additional meds for migraine cocktail. CBC with white blood cell count of 10.4. Stable H& H. CMP is unremarkable. Stable creatinine. Viral swabs are negative. UA with 2+ leuks, 11-20 WBC. Patient currently on bactrim. Recent urine culture still pending. CT scan of abdomen/pelvis obtained and pending. Care signed out to Dr. Montes De Oca at shift change pending imaging results. <Joanie Huntley PA-C - Last Filed: 05/19/24 03:34> Patient presented to ED with nausea, vomiting, fevers, headache, recent left-sided ureteral stent placement with lithotripsy. Vital signs are stable upon arrival. Patient borderline tachycardic, borderline febrile. Fluids and Tylenol initiated. Will order additional meds for migraine cocktail. CBC with white blood cell count of 10.4. Stable H& H. CMP is unremarkable. Stable creatinine. Viral swabs are negative. UA with 2+ leuks, 11-20 WBC. Patient currently on bactrim. Recent urine culture still pending. CT scan of abdomen/pelvis obtained and pending. Care signed out to Dr. Montes De Oca at shift change pending imaging results. CT scan was obtained that showed Left ureteral stent in place. There are 2 tiny stones in the proximal left ureter with additional small stones the left renal pelvis and left lower renal pole. the case was discussed with the patient's urologist who will follow the patient as an outpatient <Nasir Montes De Oca MD - Last Filed: 05/19/24 07:08> Medical Records Medical records reviewed: Yes I reviewed the external patient's medical records. <Joanie Huntley PA-C - Last Filed: 05/19/24 03:34> Vital Signs Vital Signs: Vital Signs Temperature 36.5 C 05/18/24 22:13 Pulse Rate 95 05/18/24 22:13 Respiratory Rate 19 05/18/24 22:13 Blood Pressure 104/71 05/18/24 22:13 Pulse Oximetry 100 05/18/24 22:13 Oxygen Delivery Room Air 05/18/24 22:13 Temperature 36.9 C 05/19/24 02:26 Pulse Rate 64 05/19/24 05:13 Respiratory Rate 15 05/19/24 05:13 Blood Pressure 98/60 L 05/19/24 05:13 Pulse Oximetry 98 05/19/24 05:13 Oxygen Delivery Room Air 05/18/24 22:13 <Joanie Huntley PA-C - Last Filed: 05/19/24 03:34> Vital Signs Temperature 36.5 C 05/18/24 22:13 Pulse Rate 95 05/18/24 22:13 Respiratory Rate 19 05/18/24 22:13 Blood Pressure 104/71 05/18/24 22:13 Pulse Oximetry 100 05/18/24 22:13 Oxygen Delivery Room Air 05/18/24 22:13 Temperature 36.9 C 05/19/24 02:26 Pulse Rate 64 05/19/24 05:13 Respiratory Rate 15 05/19/24 05:13 Blood Pressure 98/60 L 05/19/24 05:13 Pulse Oximetry 98 05/19/24 05:13 Oxygen Delivery Room Air 05/18/24 22:13 <Nasir Montes De Oca MD - Last Filed: 05/19/24 07:08> Lab Data Lab results reviewed: Yes I reviewed the patient's lab results. <Joanie Huntley PA-C - Last Filed: 05/19/24 03:34> Result diagrams: 05/19/24 02:07 05/19/24 02:07 <Joanie Huntley PA-C - Last Filed: 05/19/24 03:34> Labs: Lab Results 05/19/24 05/19/24 Range/Units 02:07 03:11 WBC 10.4 H (4.5-10.0) K/mm3 RBC 4.30 (4.2-5.4) M/mm3 Hgb 12.5 D (12.0-15.0) g/dL Hct 36.0 L (37.0-47.0) % MCV 83.7 (80-100) fl MCH 29.1 (26-34) pg MCHC 34.7 (32-36) g/dl RDW 12.8 (11.5-14.5) % Plt Count 205 (150-375) k/mm3 MPV 9.3 (7.4-10.4) fl Immature Gran % (Auto) 0.3 (0-0.5) % Neut % (Auto) 81.5 H (45.5-73.1) % Lymph % (Auto) 4.6 L (18.3-44.2) % Prairie % (Auto) 3.9 (2.6-8.5) % Eos % (Auto) 9.5 H (0-4.4) % Baso % (Auto) 0.2 (0.2-1.2) % Lymph # (Auto) 0.48 L (0.9-3.2) K/mm3 [place] # (Auto) 0.4 (0.1-0.6) K/mm3 Eos # (Auto) 1.0 H (0-0.3) K/mm3 Baso # (Auto) 0.0 (0.0-0.1) K/mm3 Abs Immat Gran (auto) 0.03 (0.00-0.031) K/mm3 Absolute Neuts (auto) 8.5 H (1.3-6.7) K/mm3 Absolute Nucleated RBC 0.000 (0.0-0.012) K/mm3 Nucleated RBC % 0.0 (0.0-0.2) % Sodium 132 L (137-145) mmol/L Potassium 3.9 (3.4-5.0) mmol/L Chloride 101 (98-107) mmol/L Carbon Dioxide 24 (22-30) mmol/L Anion Gap 7 (4-12) mmol/L BUN 13 (7-17) mg/dL Creatinine 0.90 (0.7-1.0) mg/dL Estim Creat Clear Calc 74 ml/min Estimated GFR > 60 (59 - ) Glucose 108 (65-110) mg/dL Lactic Acid 1.1 (0.7-2.0) mmol/L Calcium 9.3 (8.4-10.2) mg/dL Total Bilirubin 1.1 (0.2-1.3) mg/dL AST 18 (14-36) U/L ALT 18 (6-35) U/L Alkaline Phosphatase 99 (38-126) U/L Total Protein 7.0 (6.3-8.2) g/dL Albumin 4.0 (3.5-5.1) g/dL Urine Color Yellow (Yellow) Urine Appearance Clear (Clear) Urine pH 6.5 (5.0-9.0) Ur Specific [place] 1.007 (1.001-1.035) Urine Protein Negative (Negative) mg/dL Urine Glucose (UA) Negative (Negative) mg/dL Urine Ketones 1+ H (Negative) mg/dL Ur Blood (Man) 2+ H (Negative) Urine Nitrate Negative (Negative) Urine Bilirubin Negative (Negative) Urine Urobilinogen 0.2 (<2.0) mg/dL Leukocyte Esterase Rfl 2+ H (Negative) JOSE ELIAS/UL Urine RBC 11-20 H (0-2) /hpf Urine WBC 11-20 H (0-3) /hpf Ur Squamous Epith Cells None seen (Few) /hpf Urine Bacteria Trace /hpf Urine Casts 0-2 Influenza A (RT-PCR) Negative (Negative) Influenza B (RT-PCR) Negative (Negative) RSV (RT-PCR) Negative (Negative) SARS-CoV-2 RNA (RT-PCR) Negative (Negative) <Joanie Huntley PA-C - Last Filed: 05/19/24 03:34> Lab Results 05/19/24 05/19/24 Range/Units 02:07 03:11 WBC 10.4 H (4.5-10.0) K/mm3 RBC 4.30 (4.2-5.4) M/mm3 Hgb 12.5 D (12.0-15.0) g/dL Hct 36.0 L (37.0-47.0) % MCV 83.7 (80-100) fl MCH 29.1 (26-34) pg MCHC 34.7 (32-36) g/dl RDW 12.8 (11.5-14.5) % Plt Count 205 (150-375) k/mm3 MPV 9.3 (7.4-10.4) fl Immature Gran % (Auto) 0.3 (0-0.5) % Neut % (Auto) 81.5 H (45.5-73.1) % Lymph % (Auto) 4.6 L (18.3-44.2) % Prairie % (Auto) 3.9 (2.6-8.5) % Eos % (Auto) 9.5 H (0-4.4) % Baso % (Auto) 0.2 (0.2-1.2) % Lymph # (Auto) 0.48 L (0.9-3.2) K/mm3 [place] # (Auto) 0.4 (0.1-0.6) K/mm3 Eos # (Auto) 1.0 H (0-0.3) K/mm3 Baso # (Auto) 0.0 (0.0-0.1) K/mm3 Abs Immat Gran (auto) 0.03 (0.00-0.031) K/mm3 Absolute Neuts (auto) 8.5 H (1.3-6.7) K/mm3 Absolute Nucleated RBC 0.000 (0.0-0.012) K/mm3 Nucleated RBC % 0.0 (0.0-0.2) % Sodium 132 L (137-145) mmol/L Potassium 3.9 (3.4-5.0) mmol/L Chloride 101 (98-107) mmol/L Carbon Dioxide 24 (22-30) mmol/L Anion Gap 7 (4-12) mmol/L BUN 13 (7-17) mg/dL Creatinine 0.90 (0.7-1.0) mg/dL Estim Creat Clear Calc 74 ml/min Estimated GFR > 60 (59 - ) Glucose 108 (65-110) mg/dL Lactic Acid 1.1 (0.7-2.0) mmol/L Calcium 9.3 (8.4-10.2) mg/dL Total Bilirubin 1.1 (0.2-1.3) mg/dL AST 18 (14-36) U/L ALT 18 (6-35) U/L Alkaline Phosphatase 99 (38-126) U/L Total Protein 7.0 (6.3-8.2) g/dL Albumin 4.0 (3.5-5.1) g/dL Urine Color Yellow (Yellow) Urine Appearance Clear (Clear) Urine pH 6.5 (5.0-9.0) Ur Specific [place] 1.007 (1.001-1.035) Urine Protein Negative (Negative) mg/dL Urine Glucose (UA) Negative (Negative) mg/dL Urine Ketones 1+ H (Negative) mg/dL Ur Blood (Man) 2+ H (Negative) Urine Nitrate Negative (Negative) Urine Bilirubin Negative (Negative) Urine Urobilinogen 0.2 (<2.0) mg/dL Leukocyte Esterase Rfl 2+ H (Negative) JOSE ELIAS/UL Urine RBC 11-20 H (0-2) /hpf Urine WBC 11-20 H (0-3) /hpf Ur Squamous Epith Cells None seen (Few) /hpf Urine Bacteria Trace /hpf Urine Casts 0-2 Influenza A (RT-PCR) Negative (Negative) Influenza B (RT-PCR) Negative (Negative) RSV (RT-PCR) Negative (Negative) SARS-CoV-2 RNA (RT-PCR) Negative (Negative) <Nasir Montes De Oca MD - Last Filed: 05/19/24 07:08> Imaging Data Attestation: I personally reviewed and interpreted this imaging study as follows: <Joanie Huntley PA-C - Last Filed: 05/19/24 03:34> Discharge Plan Discharge Clinical Impression: Fever, Ureteral stent present, Headache, Abnormal urinalysis <Joanie Huntley PA-C - Last Filed: 05/19/24 03:34> Patient Disposition: Home, Self-Care <CHRISTOPHER Moulton Last Filed: 05/19/24 03:34> Condition: Stable <Joanie Huntley PA-C - Last Filed: 05/19/24 03:34> Instructions: Antibiotic Form, Urinary Tract Infection in Women (ED), Ureteral Stent Placement (DC) <Joanie Huntley PA-C - Last Filed: 05/19/24 03:34> Prescriptions: New ondansetron 4 mg tablet,disintegrating 4 mg PO Q8H PRN (Reason: nausea and vomiting) Qty: 10 0RF No Action Zyrtec 10 mg capsule 10 mg PO DAILY PRN (Reason: Allergy Symptoms) fluticasone propionate [Flonase Allergy Relief] 50 mcg/actuation spray,suspension 1 spray intranasal DAILY Rx Instructions: administer into each nostril hydrocodone-acetaminophen 5-325 mg tablet 1 - 2 tablet PO Q6H PRN (Reason: pain) Qty: 20 0RF hydroxychloroquine 200 mg tablet See Rx Instructions .ROUTE .COMPLEX Qty: 180 1RF Dose Instruction: TAKE 2 TABLETS DAILY Rx Instructions: TAKE 2 TABLETS DAILY Wegovy 1.7 mg/0.75 mL pen injector 1.7 mg subcut WEEKLY Qty: 3 2RF Rx Instructions: administer weeks 13 through 16 of therapy, Thursday <Joanie Huntley PA-C - Last Filed: 05/19/24 03:34> Follow-up/Referrals: Messi Martin MD [Primary Care Provider] - <Joanie Huntley PA-C - Last Filed: 05/19/24 03:34> Time of Disposition: 07:08 <Joanie Huntley PA-C - Last Filed: 05/19/24 03:34> 07:08 <Nasir Montes De Oca MD - Last Filed: 05/19/24 07:08> Sign Out Sign Out Data: Patient Sign Out occurred on 05/19/24 at 03:44. Patient's care was discussed, and care was transferred from Joanie Huntley PA-C to Nasir Montes De Oca MD. <Joanie Huntley PA-C - Last Filed: 05/19/24 03:34>
[2024-05-19 03:27] LABS: Add Urine Microscopic? YES; Appearance Urine Clear (Clear); Bilirubin Urine Negative (Negative); Blood Urine 2+ (Negative); Color Urine Yellow (Yellow); Glucose Urine UA Negative (Negative); Ketones Urine 1+ mg/dL (Negative); Leukocyte Esterase Ur 2+ LEU/UL (Negative); Nitrate Urine Negative (Negative); Non Pathogenic Casts 0-2; Protein Urine Negative (Negative); Specific Grav Ur 1.007 (1.001-1.035); Squamous Epithelial Cell Urine None Seen /hpf (Few); Urobilinogen Urine 0.2 mg/dL (<2.0); pH Urine 6.5 (5.0-9.0)
[2024-05-19 03:30] LABS: Lactic Acid Reflex 1.1 mmol/L (0.7-2.0)
[2024-05-19 03:32] LABS: Bacteria Urine Trace /hpf
[2024-05-19 05:13] VITALS: BP 98/60; PULSE 64; RESP 15; O2SAT 98
[2024-05-19 07:23] VITALS: BP 96/65; PULSE 86; RESP 16; TEMP 36.8; O2SAT 97
== END 2024-05-19 07:25 | disposition home or self-care (01) ==
PROVIDERS: Physician Assistant; Emergency Provider Emergency Medicine; PCP Urology
DX: R50.9 Fever, unspecified (principal); R51.9 Headache, unspecified; R82.998 Other abnormal findings in urine; Z96.0 Presence of urogenital implants; Z20.822 Contact with and (suspected) exposure to COVID-19; E66.9 Obesity, unspecified; Z68.29 Body mass index [BMI] 29.0-29.9, adult; J32.9 Chronic sinusitis, unspecified; D50.0 Iron deficiency anemia secondary to blood loss (chronic); M19.90 Unspecified osteoarthritis, unspecified site; K21.9 Gastro-esophageal reflux disease without esophagitis; Z86.73 Personal history of transient ischemic attack (TIA), and cerebral infarction without residual deficits; Z87.440 Personal history of urinary (tract) infections; Z87.442 Personal history of urinary calculi; Z87.891 Personal history of nicotine dependence; Z90.722 Acquired absence of ovaries, bilateral; Z90.79 Acquired absence of other genital organ(s); Z90.710 Acquired absence of both cervix and uterus; Z79.899 Other long term (current) drug therapy; K76.0 Fatty (change of) liver, not elsewhere classified
CPT/HCPCS: 36415; 74176; 80053; 81001; 83605; 85025; 87040; 87086; 87637; 96361; 96374; 96375; 99284; A9270; J1200; J2765; J7030

== ENCOUNTER 2024-05-24 14:09 | Outpatient (CLI) | payer BC, SELFPAY ==
--- NOTE | ~2024-05-24 | XR_ITS ---
EXAMINATION: XR abdomen/kub 1V DATE: 05/24/2024 14:23 INDICATION: Kidney stone. TECHNIQUE: A supine view of the abdomen on 2 radiographs was obtained. COMPARISON: Abdomen radiographs 05/17/2024 FINDINGS: There are no dilated loops of bowel. There is a large volume of stool in the colon. There a re phleboliths in the pelvis. There is a left internal ureteral stent in expected position. There are greater than 10 stones in left kidney measuring up to 4 mm. There are greater than 10 stones in left ureter measuring up to 3 mm. IMPRESSION: 1. Stones in the left kidney and left ureter with left internal ureteral stent in expected position. Reviewed, dictated and finalized at location A. [facility]
== END 2024-05-24 14:10 | disposition home or self-care (01) ==
LOC: MICIMG 14:10
PROVIDERS: PCP Urology; Visit Provider Urology
DX: N20.2 Calculus of kidney with calculus of ureter (principal); Z96.0 Presence of urogenital implants
CPT/HCPCS: 74018